=== PATIENT | female | born 1945 | race Caucasian/White ===

== ENCOUNTER 2017-02-09 13:41 | Inpatient (IN) ==
[2017-02-09] MEDS ORDERED: ASPIRIN 325 MG TABLET PO STA (14:03)
--- NOTE | 2017-02-09 14:31 | XRay Report ---
XR chest 1V portable Indication: Chest pain. Chest one view: Comparison 06/11/2008. Borderline to mild cardiomegaly, calcified atheromatous disease the aorta and normal mediastinal contour stable. No new infiltrates are shown with continued interstitial prominence of both lungs diffusely. Impression: Nonspecific interstitial prominence of the lungs diffusely, possibly airways disease or mild fluid overload. Borderline cardiomegaly. PROCEDURE INTERPRETED AT [facility] DEPARTMENT OF RADIOLOGY Final Report Signed by: Shin Mckoy M.D.
[2017-02-09 14:38] LABS: Basophils % 0.5 % (0.0-0.8); Eosinophils # 0.2 10*3/uL (0.0-0.87); Eosinophils % 1.8 % (0.00-10.9); Hematocrit 35.8 VOL% (35.7-47.0); Hemoglobin 10.8 GM/DL (12.0-16.0); Immature Granulocytes % 0.4 %; Immature Granulocytes Absolute 0.03 #; Lymphocytes # 1.3 10*3/uL (1.4-4.0); Lymphocytes % 15.5 % (21.3-54.2); Mean Corpuscular HGB Conc 30.2 GM/DL (32-36); Mean Corpuscular Hemoglobin 26 PG (27-34); Mean Corpuscular Volume 86.7 FL (87-102); Mean Platelet Volume 9.4 FL (9.6-12.0); Monocytes # 0.7 10*3/uL (0.11-0.8); Monocytes % 8.2 % (1.7-12.7); Neutrophils % 73.6 % (38.7-73.9); Platelet Count 269 T/CUMM (130-400); Red Blood Count 4.13 MC/CUMM (3.8-5.5); Red Cell Distribution Width 16.7 % (9.3-17.3); White Blood Count 8.2 T/CUMM (4-12)
[2017-02-09 14:53] LABS: D-Dimer 0.6 MG/L FEU; PT Patient Result 10.4 SECS; Partial Thromboplastin Time 27.1 SECS (0-40)
[2017-02-09] MEDS ORDERED: NITROGLYCERIN SL 0.4 MG TABLET SL PRN (15:03)
[2017-02-09] MEDS ORDERED: NITROGLYCERIN 2% OINT 1 INCH/GM PACK TOP STA (15:03)
[2017-02-09] MEDS ORDERED: ONDANSETRON 4 MG/2 ML VIAL IV STA (15:04)
[2017-02-09] MEDS ORDERED: MORPHINE 2 MG/1 ML SYRINGE IV STA (15:04)
[2017-02-09 15:16] LABS: Alanine Aminotransferase 20 U/L (13-56); Albumin 3.8 G/DL (3.4-5.0); Alkaline Phosphatase 86 U/L (45-117); Aspartate Amino Transferase 16 U/L (0-37); Bilirubin,Total < 0.39 MG/DL (0.2-1.0); Blood Urea Nitrogen 56 MG/DL (7-18); Calcium 8.9 MG/DL (8.5-10.1); Glucose 169 MG/DL (74-106); Magnesium 2.4 MG/DL (1.8-2.4); Osmolality,Calculated 294.7 MOS/KG (273-304); Sodium 138 MMOL/L (136-145); Total Protein 7.7 G/DL (6.4-8.3)
[2017-02-09 15:24] LABS: Potassium 6.9 MMOL/L (3.5-5.1)
[2017-02-09] MEDS ORDERED: SODIUM BICARBONATE 50 MEQ/50 ML VIAL IV STA (15:25)
[2017-02-09] MEDS ORDERED: INSULIN REGULAR 100 UNIT/ML IV STA (15:25)
[2017-02-09] MEDS ORDERED: DEXTROSE 50% 25 GM/50 ML VIAL IV STA (15:25)
[2017-02-09] MEDS ORDERED: ONDANSETRON 4 MG/2 ML VIAL ONE (15:33)
[2017-02-09] MEDS ORDERED: NITROGLYCERIN 2% OINT 1 INCH/GM PACK TOP ONE (15:33)
--- NOTE | 2017-02-09 15:33 | Emergency Department Note ---
Lester Penn Emily, am scribing for, and in the presence of, Weston Zarate MD 15:16. Tessa Penn James D, MD, personally performed the services described in this documentation, ascribed by Belgica Batista in my presence, and it is both accurate and complete 533 . Arrival - Arrival Chief Complaint: Chest Pain Stated Complaint: blood sugar high,legs/ankles swollen/SOB ED Nursing Triage Note: pt was at work today and starte having sudden onset tightness in center of chest with blurry vision. reports is sob. diaphoresis with episode. Mode of Arrival: Wheelchair Limitations: No Limitations Source: Patient, Family Time Seen by Provider: 02/09/17 14:57 - History of Present Illness HPI Narrative: Pt is a 71 y/o female who came to ED with c/o chest pain with SOB that suddenly started this afternoon while at work. Pt reports experiencing with pain double/ blurry vision, nausea, and diaphoresis. Pt states she has had mild chest pain, in waves, for about 2 weeks she ignored, but had pain with exertions, swelling in lower extremities that have become painful and nausea. Pt denies smoking. FMHx of younger brothers with MIs recently, and mother with heart issues. PMHx of HTN, DM. Onset (ago): hour(s) Consistency: intermittent, now resolved Severity: mild, moderate Severity scale (1-10): 4 Quality: aching (pressing) Allergies/Adverse Reactions: Allergies Allergy/AdvReac Type Severity Reaction Status Date / Time No Known Allergies Allergy Unverified 02/09/17 14:05 Home Medications: Home Medications Medication Instructions Recorded Confirmed Type Amitriptyline [Elavil] 100 mg PO BEDTIME 02/09/17 02/09/17 History Aspirin EC Tab 325 mg PO DAILY 02/09/17 02/09/17 History Carvedilol [Coreg] 25 mg PO BID 02/09/17 02/09/17 History Lisinopril/Hydrochlorothiazide 1 each PO DAILY 02/09/17 02/09/17 History [Lisinopril-Hctz 20-25 mg Tab] Metformin HCl 1,000 mg PO BID 02/09/17 02/09/17 History Pravastatin [Pravachol] 40 mg PO BEDTIME 02/09/17 02/09/17 History Spironolactone [Aldactone] 25 mg PO DAILY 02/09/17 02/09/17 History amLODIPine [Norvasc] 10 mg PO DAILY 02/09/17 02/09/17 History glipiZIDE [Glipizide Xl] 10 mg PO BID 02/09/17 02/09/17 History traMADol TAB [Ultram] 50 mg PO BID PRN 02/09/17 02/09/17 History Review of System - Review of System 12 point system: reviewed and no additional remarkable complaints except as stated - Review of System Constitutional: Present: diaphoresis (with pain). Absent: fever Respiratory: Present: respiratory distress (SOB; now resolved) Cardiovascular: Present: chest pain, edema (lower extremities), other (pain with exertion) Gastrointestinal: Present: nausea. Absent: abdominal pain, vomiting Musculoskeletal: Absent: arm pain, neck pain Skin: Absent: rash Neurological: Absent: headache Medical,Surgical,& Family Hx - Medical History Cardio: History of: Hypertension Endocrine: History of: Diabetes Mellitus (NIDDM), Dyslipidemia - Family History Family History: Reports;: Family Heart Disease (mother and younger brother with recent MIs) - Social History Smoking Status: Never smoker Marital Status: Single Functional capacity: independent ambulation Exam Vital Signs: Vital Signs Temperature 98.1 F 02/09/17 14:00 Pulse Rate 79 02/09/17 14:00 Respiratory Rate 22 02/09/17 14:00 Blood Pressure 128/69 02/09/17 14:00 O2 Sat by Pulse Oximetry 99 02/09/17 14:00 GENERAL: This is a well-nourished well-developed white female in no apparent distress. VITAL SIGNS: Reviewed HEENT: Head is atraumatic and normocephalic. Pupils are equal round react to light. Extraocular movements are intact. Oropharynx is benign with moist mucous membranes. NECK: Neck is soft and supple without tenderness. There are no masses. There is no lymphadenopathy. LUNGS: Lungs are clear to auscultation. Chest rises symmetrically. There is no chest wall tenderness. CV: Heart is regular rate and rhythm without murmurs rubs or gallops. ABDOMEN: Abdomen is soft, nontender to palpation. There are no abdominal abnormal masses palpated. There is no organomegaly. Bowel sounds are present and active. SKIN: Skin is warm and dry. No rash. EXTREMITIES: Patient has full range of motion without tenderness. There is 1+ pedal edema. NEUROLOGIC: Awake alert and oriented 4. Cranial nerves II through XII are grossly intact. Motor is 5 over 5 in all extremities bilaterally. Course Course Narrative: Patient was given D50, insulin, and bicarb for treatment of her hyperkalemia. - Consultations Consultation #1: Discussed with hospitalist. Patient will be admitted to their service. Time: 15:33 Results - Labs CBC & BMP: 02/09/17 14:18 02/09/17 14:18 Lab Results: I have reviewed the patients labs Labs: Laboratory Tests 02/09/17 14:18 Sodium 138 Potassium 6.9 H* Chloride 115 H Carbon Dioxide 15 L BUN 56 H Creatinine 2.40 H BUN/Creatinine Ratio 23.00 H Glucose 169 H Globulin 3.9 H Albumin/Globulin Ratio 0.9 L Lipase 814.0 H Laboratory Tests 02/09/17 14:18 B-Natriuretic Peptide 28 - EKG EKG results: interpreted by ERMD - Impressions EKG: Normal sinus rhythm with a rate of 76, nonspecific ST-T wave changes, normal axis. - Diagnostic Findings Procedure: Chest x-ray: image reviewed by me (Mild cardiomegaly, no pleural effusions, no infiltrates.) Critical Care Time Critical Care Time: No Disposition Clinical Impression: Chest pain, Acute renal failure, Hyperkalemia, Essential hypertension, Diabetes mellitus Case discussed with: patient, patient's family Disposition: Still a Patient Condition: Stable Time of Disposition: 16:04
[2017-02-09] MEDS ORDERED: ASPIRIN 325 MG TABLET ONE (15:34)
[2017-02-09] MEDS ORDERED: MORPHINE 2 MG/1 ML SYRINGE ONE (15:34)
[2017-02-09] MEDS ORDERED: INSULIN REGULAR 100 UNIT/ML ONE (15:35)
[2017-02-09] MEDS ORDERED: SODIUM BICARBONATE 50 MEQ/50 ML SYRINGE IV ONE (15:36)
[2017-02-09] MEDS ORDERED: SODIUM POLYSTYRENE SULFATE 15 GM/60 ML BOTTLE PO STA (16:11)
[2017-02-09] MEDS ORDERED: SODIUM POLYSTYRENE SULFATE 15 GM/60 ML BOTTLE ONE (16:26)
[2017-02-09] MEDS ORDERED: GLUCAGON 1 MG VIAL IM PRN (16:34)
--- NOTE | 2017-02-09 16:49 | Hospitalist History & Physical ---
<Norman Brown - Last Filed: 02/09/17 16:35> Assessment and Plan - Time spent with patient Time spent with patient: Greater than 30 minutes (1) Chest pain Status: Acute Assessment and plan: Admit for observation and further evaluation. Serial EKGs and troponins. Lipid panel in a.m. Aspirin tablet. Consult cardiology for assistance. Current Visit: Yes (2) Hyperkalemia Status: Acute Assessment and plan: Patient potassium is elevated at 6.9. She has been admitted to the ICU for close observation and treatment with Kayexalate. Current Visit: Yes (3) Pancreatitis Status: Acute Assessment and plan: Lipase elevated at 814. Continue IV fluids and pain management. Clear liquid diet. Current Visit: Yes (4) Acute renal failure Status: Acute Assessment and plan: Gentle IV hydration. Recheck BMP in a.m. Current Visit: Yes (5) Essential hypertension Status: Acute Assessment and plan: Continue home medications. Current Visit: Yes (6) Diabetes mellitus Status: Acute Assessment and plan: Accu-Cheks before meals at bedtime. Sliding scale as appropriate. Current Visit: Yes History of Present Illness Chief complaint: chest pain History of present illness: Ms. Leblanc is a 71 year old white female with risk factors significant for: hypertension, obesity, diabetes mellitus, age second-hand tobaccoism and family history presents to the ED today with complaints of unrelenting chest pain having onset at 1000 this morning. The patient reports that she has been experiencing mild chest pain on and off for the past 2 weeks but ignored it. Her daughter, who is at bedside, convinced the patient to come to the ER today after she missed her cardiology appointment 2 weeks ago. Patient describes a nonradiating substernal chest "pressure" that was unrelenting for hours with associated SOB. She confirms that the pain has eased with NTG paste and ASA. She confirms nausea, diaphoresis, heat/cold intolerance but denies vomiting, history of smoking, CVA, seizures, BRBPR. She also notes that she often wakes up feeling tired and sometimes becomes apneic with lower extremity edema. Patient is exquisitely tender to palpation of her lower extremities bilaterally. Lab work reveals: WBC 8.2, hemoglobin 10.8, hematocrit 35.8, potassium 6.9, BUN 56, creatinine 2.40, serum glucose 169, lipase 814. Case has been discussed with Dr. Zarate as well as Dr. Apodaca, and the patient will be admitted to the ICU with cardiology consultation. Patient is a full code. Home medications have been reviewed and reconciled. Home Medications Medication Instructions Recorded Confirmed Type Amitriptyline [Elavil] 100 mg PO BEDTIME 02/09/17 02/09/17 History Aspirin EC Tab 325 mg PO DAILY 02/09/17 02/09/17 History Carvedilol [Coreg] 25 mg PO BID 02/09/17 02/09/17 History Lisinopril/Hydrochlorothiazide 1 each PO DAILY 02/09/17 02/09/17 History [Lisinopril-Hctz 20-25 mg Tab] Metformin HCl 1,000 mg PO BID 02/09/17 02/09/17 History Pravastatin [Pravachol] 40 mg PO BEDTIME 02/09/17 02/09/17 History Spironolactone [Aldactone] 25 mg PO DAILY 02/09/17 02/09/17 History amLODIPine [Norvasc] 10 mg PO DAILY 02/09/17 02/09/17 History glipiZIDE [Glipizide Xl] 10 mg PO BID 02/09/17 02/09/17 History traMADol TAB [Ultram] 50 mg PO BID PRN 02/09/17 02/09/17 History Allergies Allergy/AdvReac Type Severity Reaction Status Date / Time No Known Allergies Allergy Unverified 02/09/17 14:05 Medical,Surgical,& Family Hx - Medical History Cardio: History of: Hypertension Endocrine: History of: Diabetes Mellitus (NIDDM), Dyslipidemia - Surgical History Abdominal Surgeries: Surgical HX of: Appendectomy Reproductive Surgeries: Surgical HX of;: Section Orthopedic Surgeries: Surgical HX of;: Orthopedic Surgery (metal plate in right leg) - Family History Family History: Reports;: Family Heart Disease (mother and younger brother with recent MIs) - Social History Smoking Status: Never smoker Frequency of Alcohol Use: None Type of Drug Use: None Marital Status: Lives With:: Spouse Functional capacity: independent ambulation - Constitutional Constitutional: Present: chills, weakness - EENT Eyes: Present: blurry vision, diplopia. Absent: loss of vision - Cardiovascular Cardiovascular: Present: chest pain at rest, chest pain with activity, diaphoresis, dyspnea, edema. Absent: radiating jaw, neck or arm pain, lightheadedness, palpitations - Respiratory Respiratory: Present: dyspnea, snoring. Absent: cough, wheezing, pain on inspiration - Gastrointestinal Gastrointestinal: Present: nausea. Absent: abdominal pain, change in bowel habits, diarrhea, vomiting - Genitourinary Genitourinary: Absent: dysuria - Musculoskeletal Musculoskeletal: Present: arthralgias - Neurological Neurological: Absent: syncope - Endocrine Endocrine: Present: cold intolerance, fatigue, heat intolerance - Hematologic/Lymphatic Hematologic/Lymphatic: Present: easy bleeding, easy bruising Exam - Constitutional Vitals: Period Temp Pulse Resp BP Sys/Becker Pulse Ox Last 24 Hr 98.1 F-98.1 F 79-79 22-22 128-128/69-69 99 General appearance: no acute distress, over weight - Head Head exam: Present: normal inspection, normocephalic, atraumatic - Eye Eye exam: Present: EOMI Pupils: Present: CAITLIN - Neck Neck exam: Present: normal inspection. Absent: lymphadenopathy, tenderness, thyromegaly - Respiratory Respiratory exam: Present: decreased breath sounds. Absent: rhonchi, wheezes - Cardiovascular Cardiovascular exam: Present: regular rate and rhythm - GI/Abdominal GI/Abdominal exam: Present: normal bowel sounds, soft. Absent: ascites, mass, tenderness - Extremities Exam Extremities exam: Present: calf tenderness, edema - Neurological Exam Neurological exam: Present: alert, oriented X3, reflexes normal - Psychiatric Psychiatric exam: Present: normal affect, normal mood - Skin Skin exam: Present: warm, dry, mottled Results - Labs CBC & BMP: 02/09/17 14:18 02/09/17 14:18 Lab Results: I have reviewed the past 24 hour labs - EKG EKG results: interpreted by BRISSA, sinus rhythm <Henny Apodaca - Last Filed: 02/09/17 19:29> Assessment and Plan (1) Hyperkalemia Status: Acute Assessment and plan: IV insulin, calcium gluconate, kayexalate and IV insulin repeat at 1999 Current Visit: Yes (2) Acute renal failure Status: Acute Current Visit: Yes (3) Chest pain Status: Acute Current Visit: Yes (4) Pancreatitis Status: Acute Current Visit: Yes (5) Diabetes mellitus Status: Chronic Current Visit: Yes (6) Essential hypertension Status: Chronic Current Visit: Yes History of Present Illness History of present illness: Ms. Leblanc is a 71 year old female seen and examined. History and physical reviewed and edited. Exam - Constitutional Vitals: Period Temp Pulse Resp BP Sys/Becker Pulse Ox Last 24 Hr 97.3 F-98.1 F 75-93 15-24 101-156/52-115 99-100 - Eye Eye exam: Absent: scleral icterus Pupils: Present: normal accommodation - Cardiovascular Cardiovascular exam: Present: bradycardia, regular rate and rhythm - Neurological Exam Neurological exam: Present: CN II-XII intact. Absent: motor sensory deficit Results - Labs CBC & BMP: 02/09/17 14:18 02/09/17 14:18 - EKG EKG shows: bradycardia - Diagnostic Findings Procedure: Chest x-ray: report reviewed by me (LLL atelectasis ), KUB x-ray: report reviewed by me (stool )
[2017-02-09] MEDS ORDERED: PANTOPRAZOLE 40 MG TABLET PO SCH (17:00)
[2017-02-09] MEDS: SODIUM CHLORIDE 0.45% 1,000 ML IV SCH (17:44)
--- NOTE | 2017-02-09 18:00 | Cardiology Consult Note ---
Assessment and Plan (1) Chest pain Status: Acute Current Visit: Yes (2) Acute renal failure Status: Acute Current Visit: Yes (3) Diabetes mellitus Status: Chronic Current Visit: Yes (4) Essential hypertension Status: Chronic Current Visit: Yes (5) Hyperkalemia Status: Acute Current Visit: Yes (6) Pancreatitis Status: Acute Current Visit: Yes History of Present Illness - Data of Consult Patient: new to practice Consult date: 02/09/17 Requesting Physician: Henny Apodaca - Consult Narrative Reason for consult: CP History of present illness: Medical Malpractice Paralegal: None currently. Daughter Rachel Long works at [employer]. Siblings see Dr. Peck. Patient is a 71-year-old white female without a prior cardiac history, with risk factors that include hypertension, diabetes mellitus, and a family history of coronary artery disease. Apparently she has had a subacute decline with dyspnea on exertion, exertional chest discomfort described as a squeezing in her chest associated with shortness of breath, and bilateral lower extremity edema for approximately 2 months. She was recently started on Aldactone for the swelling, and has been on lisinopril long-term. Her chest discomfort is triggered with exertion, relieved by rest and does not have any other triggers. It is not related to eating or position. It does not radiate. She does not have orthopnea. There has been a steady decline in her exercise tolerance. She had a cardiology appointment but canceled it due to work conflicts. Today at work, her boss felt that she looked unwell, reported that she had been dizzy with some alteration in her vision, and some shortness of breath with diaphoresis. Her blood sugars were elevated in the 300s. Her daughter was contacted to crab picker and brought her to the emergency room. She is currently chest pain-free at rest. She has had bilateral lower extremity edema for 2 months. She has been found to have an elevated lipase, but denies any abdominal tenderness or postprandial chest discomfort. She has experienced some nausea without vomiting. She has not had diarrhea. She is hyperkalemic, and has not had this before. The Aldactone is relatively new. She has been on lisinopril for a number of years. She has renal insufficiency of unknown duration, no prior renal dysfunction although there is a very strong family history of renal dysfunction that apparently is related to reflux. She has had some symptoms of feeling hot and cold at the same time. The remainder of her 12 point review of systems is otherwise negative in detail. Assessment and plan: 1. Chest discomfort: She has symptoms that can be typical of anginal symptoms and at some point we will need to get further cardiac workup. We will begin with an echocardiogram. Invasive workup will be deferred until her renal status is optimized. 2. pancreatitis-curiously she has very few symptoms despite this elevated lipase. This is being treated by the hospitalist service. We will check a lipid profile to evaluate the triglycerides also. 3. Hyperkalemia-this is related probably to her Aldactone, lisinopril and renal insufficiency. Her contributing medications are being held. 4. Acute renal insufficiency-OVIDIO inhibitor is being held. There is associated hyperkalemia. Urinalysis will be checked and possibly renal ultrasound. 5. Bilateral lower extremity edema- Certainly her renal insufficiency could be contributing. We will check an echo, bilateral lower extremity venous Dopplers. 6. Hypertension-chronic. Antihypertensive regimen will be adjusted given her current condition. 7. Diabetes mellitus- Chronic CC: Henny Apodaca MD - Home Medications and Allergies Home Medications: Home Medications Medication Instructions Recorded Confirmed Type Amitriptyline [Elavil] 100 mg PO BEDTIME 02/09/17 02/09/17 History Aspirin EC Tab 325 mg PO DAILY 02/09/17 02/09/17 History Carvedilol [Coreg] 25 mg PO BID 02/09/17 02/09/17 History Lisinopril/Hydrochlorothiazide 1 each PO DAILY 02/09/17 02/09/17 History [Lisinopril-Hctz 20-25 mg Tab] Metformin HCl 1,000 mg PO BID 02/09/17 02/09/17 History Pravastatin [Pravachol] 40 mg PO BEDTIME 02/09/17 02/09/17 History Spironolactone [Aldactone] 25 mg PO DAILY 02/09/17 02/09/17 History amLODIPine [Norvasc] 10 mg PO DAILY 02/09/17 02/09/17 History glipiZIDE [Glipizide Xl] 10 mg PO BID 02/09/17 02/09/17 History traMADol TAB [Ultram] 50 mg PO BID PRN 02/09/17 02/09/17 History Allergies/Adverse Reactions: Allergies Allergy/AdvReac Type Severity Reaction Status Date / Time No Known Allergies Allergy Unverified 02/09/17 14:05 12 point system: reviewed and no additional remarkable complaints except as stated Medical,Surgical,& Family Hx - Medical History Cardio: History of: Hypertension Endocrine: History of: Diabetes Mellitus (NIDDM), Dyslipidemia - Surgical History Abdominal Surgeries: Surgical HX of: Appendectomy Reproductive Surgeries: Surgical HX of;: Section Orthopedic Surgeries: Surgical HX of;: Orthopedic Surgery (metal plate in right leg) - Family History Family History: Reports;: Family Heart Disease (mother and younger brother with recent MIs) - Social History Smoking Status: Never smoker Frequency of Alcohol Use: None Type of Drug Use: None Physical Examination Vital Signs Temp Pulse Resp BP Pulse Ox 98.1 F 79 22 128/69 99 02/09/17 14:00 02/09/17 14:00 02/09/17 14:00 02/09/17 14:00 02/09/17 14:00 Exam: General appearance: normal weight, no acute distress - Head Head exam: Present: normal inspection, normocephalic, atraumatic. Absent: hematoma, laceration - Eye Eye exam: Present: EOMI. Absent: conjunctival injection, nystagmus, periorbital swelling, scleral icterus, laceration to eyelids Pupils: Present: PERRL. Absent: constricted, dilated, fixed, irregular, unequal - ENT ENT exam: Present: normal exam, normal external ear exam - Neck Neck exam: Present: normal inspection. Absent: lymphadenopathy, meningismus, tenderness, thyromegaly - Respiratory Respiratory exam: Present: clear to auscultation bilaterally. Absent: accessory muscle use, chest wall tenderness - Cardiovascular Cardiovascular exam: Present: regular rate and rhythm with 2/6 systolic murmur. Absent: carotid bruit, gallop, JVD, rubs - GI/Abdominal GI/Abdominal exam: Present: normal bowel sounds, soft. Absent: distended, firm , guarding, hernia, mass, tenderness, rebound. - Extremities Exam Extremities exam: Present: 1+ bilateral lower extremity edema. Absent: calf tenderness - Back Exam Back exam: Present: normal inspection. Absent: muscle spasm, vertebral tenderness - Neurological Exam Neurological exam: Present: alert, oriented X3, grossly intact without resting or intention tremor - Psychiatric Psychiatric exam: Present: normal affect, normal mood - Skin Skin exam: Present: normal color, warm, dry, intact. Absent: cyanosis, diaphoretic, rash, urticaria Result/EKG - Labs CBC & BMP: 02/09/17 14:18 02/09/17 14:18 Lab Results: I have reviewed the past 24 hour labs Labs: Laboratory Results - last 24 hr 02/09/17 02/09/17 02/09/17 14:18 14:18 14:18 WBC RBC Hgb Hct MCV MCH MCHC RDW Plt Count MPV Neut % (Auto) Lymph % (Auto) Greer % (Auto) Eos % (Auto) Baso % (Auto) Neut # (Auto) Lymph # (Auto) Greer # (Auto) Eos # (Auto) Baso # (Auto) Immature Gran % Nucleated RBC % Immature Gran # Nucleated RBCs # Immature Plt Fraction INR 1.0 PT Patient/Control Mix 10.4 D-Dimer, Quantitative 0.6 Circ Anticoag PTT 27.1 Sodium 138 Potassium 6.9 H* Chloride 115 H Carbon Dioxide 15 L Anion Gap 14.9 BUN 56 H Creatinine 2.40 H GFR Calculation 22 BUN/Creatinine Ratio 23.00 H Glucose 169 H POC Glucose Calculated Osmolality 294.7 Calcium 8.9 Magnesium 2.4 Total Bilirubin < 0.39 AST 16 ALT 20 Alkaline Phosphatase 86 Troponin I < 0.015 B-Natriuretic Peptide Total Protein 7.7 Albumin 3.8 Globulin 3.9 H Albumin/Globulin Ratio 0.9 L Lipase 814.0 H Free T4 TSH 3rd Generation 02/09/17 02/09/17 02/09/17 14:18 14:18 14:30 WBC 8.2 RBC 4.13 Hgb 10.8 L Hct 35.8 MCV 86.7 L MCH 26 L MCHC 30.2 L RDW 16.7 Plt Count 269 MPV 9.4 L Neut % (Auto) 73.6 Lymph % (Auto) 15.5 L Greer % (Auto) 8.2 Eos % (Auto) 1.8 Baso % (Auto) 0.5 Neut # (Auto) 6.0 Lymph # (Auto) 1.3 L Greer # (Auto) 0.7 Eos # (Auto) 0.2 Baso # (Auto) 0.0 Immature Gran % 0.4 Nucleated RBC % 0.0 Immature Gran # 0.03 Nucleated RBCs # 0.00 Immature Plt Fraction 0.0 INR PT Patient/Control Mix D-Dimer, Quantitative Circ Anticoag PTT Sodium Potassium Chloride Carbon Dioxide Anion Gap BUN Creatinine GFR Calculation BUN/Creatinine Ratio Glucose POC Glucose Calculated Osmolality Calcium Magnesium Total Bilirubin AST ALT Alkaline Phosphatase Troponin I B-Natriuretic Peptide 28 Total Protein Albumin Globulin Albumin/Globulin Ratio Lipase Free T4 0.93 TSH 3rd Generation 02/09/17 02/09/17 14:30 17:33 WBC RBC Hgb Hct MCV MCH MCHC RDW Plt Count MPV Neut % (Auto) Lymph % (Auto) Greer % (Auto) Eos % (Auto) Baso % (Auto) Neut # (Auto) Lymph # (Auto) Greer # (Auto) Eos # (Auto) Baso # (Auto) Immature Gran % Nucleated RBC % Immature Gran # Nucleated RBCs # Immature Plt Fraction INR PT Patient/Control Mix D-Dimer, Quantitative Circ Anticoag PTT Sodium Potassium Chloride Carbon Dioxide Anion Gap BUN Creatinine GFR Calculation BUN/Creatinine Ratio Glucose POC Glucose 90 Calculated Osmolality Calcium Magnesium Total Bilirubin AST ALT Alkaline Phosphatase Troponin I B-Natriuretic Peptide Total Protein Albumin Globulin Albumin/Globulin Ratio Lipase Free T4 TSH 3rd Generation 0.991 - Diagnostic Findings Procedure: Chest x-ray: report reviewed by me - EKG EKG results: interpreted by me, sinus rhythm, no acute changes
[2017-02-09 18:20] LABS: Apearance,Urine CLEAR (Clear); Bilirubin,Urine Negative (Negative); Blood, Urine Negative (Negative); Glucose,Urine (UA) 50 mg/dL (Negative); Hyaline Casts,Urine 6 /LPF (0-3); Ketones,Urine Negative (Negative); Mucus,Urine Occasional /LPF (Occasional); Nitrite,Urine Negative (Negative); Protein,Urine Negative; Squamous Epithelial Cell,Urine Occasional /HPF (0-10); Urine Color Yellow (Yellow); Urine Specific Gravity 1.013 (1.001-1.035); Urine Urobilinogen < 2.0 EU/DL (0.2-1.0); WBC,Urine 1 /HPF (0-6)
[2017-02-09 18:33] LABS: Barbiturates Screen,Urine Negative (Negative); Benzodiazepines Screen,Urine Negative (Negative); Cannabinoid Screen,Urine Negative (Negative); Opiate Screen,Urine Positive (Negative); Phencyclidine Screen,Urine Negative (Negative)
[2017-02-09 19:25] LABS: Troponin I Only < 0.015 NG/ML (0.00-0.045)
[2017-02-09] MEDS ORDERED: CALCIUM GLUCONATE 2,000 MG in SODIUM CHLORIDE 0.9% 100 ML IV ONE (20:00)
[2017-02-09] MEDS: INSULIN REGULAR 100 UNIT/ML SUBCUT SCH (20:05)
[2017-02-09] MEDS: ENOXAPARIN 30 MG/0.3 ML SYRINGE SUBCUT SCH (20:38)
[2017-02-09] MEDS: PRAVASTATIN 40 MG TABLET PO SCH (20:38)
[2017-02-09] MEDS: CARVEDILOL 3.125 MG TABLET PO SCH (20:56)
[2017-02-09] MEDS: AMITRIPTYLINE 25 MG TABLET PO SCH (20:56)
[2017-02-09] MEDS ORDERED: AMITRIPTYLINE 100 MG TABLET PO SCH (21:00)
[2017-02-09] MEDS ORDERED: CARVEDILOL 25 MG TABLET PO SCH (21:00)
[2017-02-09 21:58] LABS: Calcium 9.4 MG/DL (8.5-10.1); Osmolality,Calculated 295.1 MOS/KG (273-304); Potassium 5.5 MMOL/L (3.5-5.1)
[2017-02-10 01:02] LABS: Basophils % 0.6 % (0.0-0.8); Eosinophils # 0.2 10*3/uL (0.0-0.87); Eosinophils % 2.9 % (0.00-10.9); Hematocrit 30.3 VOL% (35.7-47.0); Hemoglobin 9.9 GM/DL (12.0-16.0); Immature Granulocytes % 0.3 %; Immature Granulocytes Absolute 0.02 #; Lymphocytes # 1.6 10*3/uL (1.4-4.0); Lymphocytes % 24.3 % (21.3-54.2); Mean Corpuscular HGB Conc 32.7 GM/DL (32-36); Mean Corpuscular Hemoglobin 27 PG (27-34); Mean Corpuscular Volume 81.7 FL (87-102); Mean Platelet Volume 9.4 FL (9.6-12.0); Monocytes # 0.7 10*3/uL (0.11-0.8); Monocytes % 11.2 % (1.7-12.7); Neutrophils % 60.7 % (38.7-73.9); Platelet Count 240 T/CUMM (130-400); Red Blood Count 3.71 MC/CUMM (3.8-5.5); Red Cell Distribution Width 16.8 % (9.3-17.3); White Blood Count 6.6 T/CUMM (4-12)
[2017-02-10] MEDS: SODIUM CHLORIDE 0.45% 1,000 ML IV SCH ×2 (01:02→09:32)
[2017-02-10 01:36] LABS: Alanine Aminotransferase 19 U/L (13-56); Albumin 3.2 G/DL (3.4-5.0); Alkaline Phosphatase 74 U/L (45-117); Aspartate Amino Transferase 14 U/L (0-37); Bilirubin,Total < 0.39 MG/DL (0.2-1.0); Blood Urea Nitrogen 47 MG/DL (7-18); Calcium 8.6 MG/DL (8.5-10.1); Cholesterol 123 MG/DL (50-200); Glucose 55 MG/DL (74-106); HDL Cholesterol 38 MG/DL (40-60); Osmolality,Calculated 292.1 MOS/KG (273-304); Potassium 5.1 MMOL/L (3.5-5.1); Risk Ratio 3.24; Sodium 142 MMOL/L (136-145); Total Protein 6.4 G/DL (6.4-8.3); Triglycerides 188 MG/DL (2-150); VLDL CHOLESTEROL 37.6 MG/DL
[2017-02-10 01:38] LABS: Troponin I Only < 0.015 NG/ML (0.00-0.045)
[2017-02-10] MEDS: ACETAMINOPHEN 325 MG TABLET PO PRN (06:35)
[2017-02-10] MEDS ORDERED: SODIUM POLYSTYRENE SULFATE 15 GM/60 ML BOTTLE PO ONE (08:13)
[2017-02-10] MEDS: PANTOPRAZOLE 40 MG TABLET PO SCH ×2 (08:20→22:18)
[2017-02-10] MEDS: amLODIPine 10 MG TABLET PO SCH (08:20)
[2017-02-10] MEDS: ASPIRIN EC 325 MG TABLET PO SCH (08:21)
[2017-02-10] MEDS: CARVEDILOL 3.125 MG TABLET PO SCH ×2 (08:21→22:22)
[2017-02-10 08:41] LABS: Troponin I Only < 0.015 NG/ML (0.00-0.045)
[2017-02-10] MEDS ORDERED: HYDROmorphone 2 MG/1 ML VIAL IV ONE (09:12)
--- NOTE | 2017-02-10 09:22 | EKG Report ---
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
--- NOTE | 2017-02-10 09:23 | EKG Report ---
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
--- NOTE | 2017-02-10 09:23 | EKG Report ---
Stationary ECG Study [facility] Test Date: 02/09/2017 10:46:31 PM Pat Name: ISMAEL POWERS Department: Room: 123 Gender: F Associate Program Manager: : 1945 Requested by: Henny Friedman Order Number: [id number] Reading MD: PADILLA WALSH Intervals [place] Rate: 81 P: 41 NH: 142 QRS: 32 QRSD: 102 T: 37 QT: 343 QTc: 380 Interpretive Statements SINUS RHYTHM Electronically Signed On 02-12-17 06:27:34 CDT by PADILLA WALSH [email or web address]
[2017-02-10] MEDS: INSULIN REGULAR 100 UNIT/ML SUBCUT SCH ×4 (09:30→21:25)
[2017-02-10] MEDS: SODIUM BICARB INJ 50 MEQ in SODIUM CHLORIDE 0.45% 1,000 ML IV SCH ×2 (09:30→17:22)
--- NOTE | 2017-02-10 09:34 | Cardiology Progress Note ---
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 Daughter Rachel Long works at [employer]. Siblings see Dr. Peck. Summary: Patient is a 71-year-old white female without a prior cardiac history, with risk factors that include hypertension, diabetes mellitus, and a family history of coronary artery disease. She was admitted with a subacute decline in her exercise tolerance, dyspnea on exertion, exertional chest tightness, bilateral lower extremity edema for 2 months. Upon admission she was found to have hyperkalemia (likely related to Aldactone which is recently started), renal insufficiency and possible pancreatitis. February 10, 2017: Clinically, today she is doing well. She does occasionally have some chest tightness, no clear pain. She denies shortness of breath while at rest. She still denies abdominal pain, although reportedly she had some nausea postprandially. Assessment and plan: 1. Chest discomfort: She has symptoms that can be typical of anginal symptoms and at some point we will need to get further cardiac workup. We will begin with an echocardiogram. Invasive workup will be deferred until her renal status is optimized. 2. pancreatitis-curiously she has very few symptoms despite this elevated lipase. This is being treated by the hospitalist service. 3. Hyperkalemia-this is related probably to her Aldactone, lisinopril and renal insufficiency. Her contributing medications are being held. This is resolved today. 4. Acute renal insufficiency-OVIDIO inhibitor is being held. There is associated hyperkalemia. Urinalysis will be checked and possibly renal ultrasound. This is improved today. 5. Bilateral lower extremity edema- Certainly her renal insufficiency could be contributing. We will check an echo, bilateral lower extremity venous Dopplers. 6. Hypertension-chronic. Antihypertensive regimen will be adjusted given her current condition. 7. Diabetes mellitus- Chronic 8. Anemia-we will work this up. Exam (Progress Note) - Constitutional Vitals: Period Temp Pulse Resp BP Sys/Becker Pulse Ox Last 24 Hr 97.3 F-98.3 F 75-93 11-24 101-156/50-115 94-100 Exam: General appearance: normal weight, no acute distress - Head Head exam: Present: normal inspection, normocephalic, atraumatic. Absent: hematoma, laceration - Eye Eye exam: Present: EOMI. Absent: conjunctival injection, nystagmus, periorbital swelling, scleral icterus, laceration to eyelids Pupils: Present: PERRL. Absent: constricted, dilated, fixed, irregular, unequal - ENT ENT exam: Present: normal exam, normal external ear exam - Neck Neck exam: Present: normal inspection. Absent: lymphadenopathy, meningismus, tenderness, thyromegaly - Respiratory Respiratory exam: Present: clear to auscultation bilaterally. Absent: accessory muscle use, chest wall tenderness - Cardiovascular Cardiovascular exam: Present: regular rate and rhythm with 2/6 systolic murmur. Absent: carotid bruit, gallop, JVD, rubs - GI/Abdominal GI/Abdominal exam: Present: normal bowel sounds, soft. Absent: distended, firm , guarding, hernia, mass, tenderness, rebound. - Extremities Exam Extremities exam: Present: 1+ bilateral lower extremity edema. Absent: calf tenderness - Back Exam Back exam: Present: normal inspection. Absent: muscle spasm, vertebral tenderness - Neurological Exam Neurological exam: Present: alert, oriented X3, grossly intact without resting or intention tremor - Psychiatric Psychiatric exam: Present: normal affect, normal mood - Skin Skin exam: Present: normal color, warm, dry, intact. Absent: cyanosis, diaphoretic, rash, urticaria Result/EKG - Labs CBC & BMP: 02/10/17 00:49 02/10/17 00:49 Lab Results: I have reviewed the past 24 hour labs Labs: Laboratory Results - last 24 hr 02/09/17 02/09/17 02/09/17 14:18 14:18 14:18 WBC RBC Hgb Hct MCV MCH MCHC RDW Plt Count MPV Neut % (Auto) Lymph % (Auto) [place] % (Auto) Eos % (Auto) Baso % (Auto) Neut # (Auto) Lymph # (Auto) [place] # (Auto) Eos # (Auto) Baso # (Auto) Immature Gran % Nucleated RBC % Immature Gran # Nucleated RBCs # Immature Plt Fraction INR 1.0 PT Patient/Control Mix 10.4 D-Dimer, Quantitative 0.6 Circ Anticoag PTT 27.1 Sodium 138 Potassium 6.9 H* Chloride 115 H Carbon Dioxide 15 L Anion Gap 14.9 BUN 56 H Creatinine 2.40 H GFR Calculation 22 BUN/Creatinine Ratio 23.00 H Glucose 169 H POC Glucose Hemoglobin A1c Calculated Osmolality 294.7 Calcium 8.9 Magnesium 2.4 Total Bilirubin < 0.39 AST 16 ALT 20 Alkaline Phosphatase 86 Total Creatine Kinase CK-MB (CK-2) Troponin I < 0.015 B-Natriuretic Peptide Total Protein 7.7 Albumin 3.8 Globulin 3.9 H Albumin/Globulin Ratio 0.9 L Triglycerides Cholesterol LDL Cholesterol VLDL Cholesterol HDL Cholesterol Heart Disease Risk Ratio Lipase 814.0 H Free T4 TSH 3rd Generation Urine Color Urine Appearance Urine pH Ur Specific [place] Urine Protein Urine Glucose (UA) Urine Ketones Urine Blood Urine Nitrate Urine Bilirubin Urine Urobilinogen Urine Leukocytes Urine WBC Ur Squamous Epith Cells Hyaline Casts Urine Mucus Ur Culture Indicated? Urine Opiates Screen Ur Barbiturates Screen Ur Phencyclidine Scrn U Amphetamine/Methamph U Benzodiazepines Scrn U Cocaine Metab Screen U Cannabinoids Screen 02/09/17 02/09/17 02/09/17 14:18 14:18 14:30 WBC 8.2 RBC 4.13 Hgb 10.8 L Hct 35.8 MCV 86.7 L MCH 26 L MCHC 30.2 L RDW 16.7 Plt Count 269 MPV 9.4 L Neut % (Auto) 73.6 Lymph % (Auto) 15.5 L [place] % (Auto) 8.2 Eos % (Auto) 1.8 Baso % (Auto) 0.5 Neut # (Auto) 6.0 Lymph # (Auto) 1.3 L [place] # (Auto) 0.7 Eos # (Auto) 0.2 Baso # (Auto) 0.0 Immature Gran % 0.4 Nucleated RBC % 0.0 Immature Gran # 0.03 Nucleated RBCs # 0.00 Immature Plt Fraction 0.0 INR PT Patient/Control Mix D-Dimer, Quantitative Circ Anticoag PTT Sodium Potassium Chloride Carbon Dioxide Anion Gap BUN Creatinine GFR Calculation BUN/Creatinine Ratio Glucose POC Glucose Hemoglobin A1c Calculated Osmolality Calcium Magnesium Total Bilirubin AST ALT Alkaline Phosphatase Total Creatine Kinase CK-MB (CK-2) Troponin I B-Natriuretic Peptide 28 Total Protein Albumin Globulin Albumin/Globulin Ratio Triglycerides Cholesterol LDL Cholesterol VLDL Cholesterol HDL Cholesterol Heart Disease Risk Ratio Lipase Free T4 0.93 TSH 3rd Generation Urine Color Urine Appearance Urine pH Ur Specific [place] Urine Protein Urine Glucose (UA) Urine Ketones Urine Blood Urine Nitrate Urine Bilirubin Urine Urobilinogen Urine Leukocytes Urine WBC Ur Squamous Epith Cells Hyaline Casts Urine Mucus Ur Culture Indicated? Urine Opiates Screen Ur Barbiturates Screen Ur Phencyclidine Scrn U Amphetamine/Methamph U Benzodiazepines Scrn U Cocaine Metab Screen U Cannabinoids Screen 02/09/17 02/09/17 02/09/17 14:30 17:33 18:10 WBC RBC Hgb Hct MCV MCH MCHC RDW Plt Count MPV Neut % (Auto) Lymph % (Auto) [place] % (Auto) Eos % (Auto) Baso % (Auto) Neut # (Auto) Lymph # (Auto) [place] # (Auto) Eos # (Auto) Baso # (Auto) Immature Gran % Nucleated RBC % Immature Gran # Nucleated RBCs # Immature Plt Fraction INR PT Patient/Control Mix D-Dimer, Quantitative Circ Anticoag PTT Sodium Potassium Chloride Carbon Dioxide Anion Gap BUN Creatinine GFR Calculation BUN/Creatinine Ratio Glucose POC Glucose 90 Hemoglobin A1c Calculated Osmolality Calcium Magnesium Total Bilirubin AST ALT Alkaline Phosphatase Total Creatine Kinase CK-MB (CK-2) Troponin I B-Natriuretic Peptide Total Protein Albumin Globulin Albumin/Globulin Ratio Triglycerides Cholesterol LDL Cholesterol VLDL Cholesterol HDL Cholesterol Heart Disease Risk Ratio Lipase Free T4 TSH 3rd Generation 0.991 Urine Color Yellow Urine Appearance Clear Urine pH 5.0 Ur Specific [place] 1.013 Urine Protein Negative Urine Glucose (UA) 50 Urine Ketones Negative Urine Blood Negative Urine Nitrate Negative Urine Bilirubin Negative Urine Urobilinogen < 2.0 H Urine Leukocytes Negative Urine WBC 1 Ur Squamous Epith Cells Occasional Hyaline Casts 6 Urine Mucus Occasional Ur Culture Indicated? Not indicated Urine Opiates Screen Ur Barbiturates Screen Ur Phencyclidine Scrn U Amphetamine/Methamph U Benzodiazepines Scrn U Cocaine Metab Screen U Cannabinoids Screen 02/09/17 02/09/17 02/09/17 18:10 18:33 18:36 WBC RBC Hgb Hct MCV MCH MCHC RDW Plt Count MPV Neut % (Auto) Lymph % (Auto) [place] % (Auto) Eos % (Auto) Baso % (Auto) Neut # (Auto) Lymph # (Auto) [place] # (Auto) Eos # (Auto) Baso # (Auto) Immature Gran % Nucleated RBC % Immature Gran # Nucleated RBCs # Immature Plt Fraction INR PT Patient/Control Mix D-Dimer, Quantitative Circ Anticoag PTT Sodium Potassium Chloride Carbon Dioxide Anion Gap BUN Creatinine GFR Calculation BUN/Creatinine Ratio Glucose POC Glucose Hemoglobin A1c 6.8 H Calculated Osmolality Calcium Magnesium Total Bilirubin AST ALT Alkaline Phosphatase Total Creatine Kinase 240 H CK-MB (CK-2) 1.1 Troponin I < 0.015 B-Natriuretic Peptide Total Protein Albumin Globulin Albumin/Globulin Ratio Triglycerides Cholesterol LDL Cholesterol VLDL Cholesterol HDL Cholesterol Heart Disease Risk Ratio Lipase Free T4 TSH 3rd Generation Urine Color Urine Appearance Urine pH Ur Specific [place] Urine Protein Urine Glucose (UA) Urine Ketones Urine Blood Urine Nitrate Urine Bilirubin Urine Urobilinogen Urine Leukocytes Urine WBC Ur Squamous Epith Cells Hyaline Casts Urine Mucus Ur Culture Indicated? Urine Opiates Screen Positive H Ur Barbiturates Screen Negative Ur Phencyclidine Scrn Negative U Amphetamine/Methamph Negative U Benzodiazepines Scrn Negative U Cocaine Metab Screen Negative U Cannabinoids Screen Negative 02/09/17 02/09/17 02/09/17 18:36 18:36 19:55 WBC RBC Hgb Hct MCV MCH MCHC RDW Plt Count MPV Neut % (Auto) Lymph % (Auto) [place] % (Auto) Eos % (Auto) Baso % (Auto) Neut # (Auto) Lymph # (Auto) [place] # (Auto) Eos # (Auto) Baso # (Auto) Immature Gran % Nucleated RBC % Immature Gran # Nucleated RBCs # Immature Plt Fraction INR PT Patient/Control Mix D-Dimer, Quantitative Circ Anticoag PTT Sodium 142 Potassium 5.5 H Chloride 117 H Carbon Dioxide 16 L Anion Gap 14.5 BUN 51 H Creatinine 2.20 H GFR Calculation 25 BUN/Creatinine Ratio 23.00 H Glucose 87 POC Glucose 81 Hemoglobin A1c Calculated Osmolality 295.1 Calcium 9.4 Magnesium 2.4 Total Bilirubin AST ALT Alkaline Phosphatase Total Creatine Kinase CK-MB (CK-2) Troponin I B-Natriuretic Peptide Total Protein Albumin Globulin Albumin/Globulin Ratio Triglycerides Cholesterol LDL Cholesterol VLDL Cholesterol HDL Cholesterol Heart Disease Risk Ratio Lipase Free T4 TSH 3rd Generation Urine Color Urine Appearance Urine pH Ur Specific [place] Urine Protein Urine Glucose (UA) Urine Ketones Urine Blood Urine Nitrate Urine Bilirubin Urine Urobilinogen Urine Leukocytes Urine WBC Ur Squamous Epith Cells Hyaline Casts Urine Mucus Ur Culture Indicated? Urine Opiates Screen Ur Barbiturates Screen Ur Phencyclidine Scrn U Amphetamine/Methamph U Benzodiazepines Scrn U Cocaine Metab Screen U Cannabinoids Screen 02/10/17 02/10/17 02/10/17 00:49 00:49 00:49 WBC 6.6 RBC 3.71 L Hgb 9.9 L Hct 30.3 L MCV 81.7 L MCH 27 MCHC 32.7 RDW 16.8 Plt Count 240 MPV 9.4 L Neut % (Auto) 60.7 Lymph % (Auto) 24.3 [place] % (Auto) 11.2 Eos % (Auto) 2.9 Baso % (Auto) 0.6 Neut # (Auto) 4.0 Lymph # (Auto) 1.6 [place] # (Auto) 0.7 Eos # (Auto) 0.2 Baso # (Auto) 0.0 Immature Gran % 0.3 Nucleated RBC % 0.0 Immature Gran # 0.02 Nucleated RBCs # 0.00 Immature Plt Fraction 0.0 INR PT Patient/Control Mix D-Dimer, Quantitative Circ Anticoag PTT Sodium 142 Potassium 5.1 Chloride 117 H Carbon Dioxide 17 L Anion Gap 13.1 BUN 47 H Creatinine 1.80 H GFR Calculation 32 BUN/Creatinine Ratio 26.00 H Glucose 55 L POC Glucose Hemoglobin A1c Calculated Osmolality 292.1 Calcium 8.6 Magnesium Total Bilirubin < 0.39 AST 14 ALT 19 Alkaline Phosphatase 74 Total Creatine Kinase 148 D CK-MB (CK-2) 1.3 Troponin I < 0.015 B-Natriuretic Peptide Total Protein 6.4 Albumin 3.2 L Globulin 3.2 Albumin/Globulin Ratio 1.0 L Triglycerides 188 H Cholesterol 123 LDL Cholesterol 56.0 VLDL Cholesterol 37.6 HDL Cholesterol 38 L Heart Disease Risk Ratio 3.24 Lipase Free T4 TSH 3rd Generation Urine Color Urine Appearance Urine pH Ur Specific [place] Urine Protein Urine Glucose (UA) Urine Ketones Urine Blood Urine Nitrate Urine Bilirubin Urine Urobilinogen Urine Leukocytes Urine WBC Ur Squamous Epith Cells Hyaline Casts Urine Mucus Ur Culture Indicated? Urine Opiates Screen Ur Barbiturates Screen Ur Phencyclidine Scrn U Amphetamine/Methamph U Benzodiazepines Scrn U Cocaine Metab Screen U Cannabinoids Screen 02/10/17 02/10/17 07:19 07:19 WBC RBC Hgb Hct MCV MCH MCHC RDW Plt Count MPV Neut % (Auto) Lymph % (Auto) [place] % (Auto) Eos % (Auto) Baso % (Auto) Neut # (Auto) Lymph # (Auto) [place] # (Auto) Eos # (Auto) Baso # (Auto) Immature Gran % Nucleated RBC % Immature Gran # Nucleated RBCs # Immature Plt Fraction INR PT Patient/Control Mix D-Dimer, Quantitative Circ Anticoag PTT Sodium Potassium Chloride Carbon Dioxide Anion Gap BUN Creatinine GFR Calculation BUN/Creatinine Ratio Glucose POC Glucose Hemoglobin A1c Calculated Osmolality Calcium Magnesium Total Bilirubin AST ALT Alkaline Phosphatase Total Creatine Kinase 118 D CK-MB (CK-2) 1.2 Troponin I < 0.015 B-Natriuretic Peptide Total Protein Albumin Globulin Albumin/Globulin Ratio Triglycerides Cholesterol LDL Cholesterol VLDL Cholesterol HDL Cholesterol Heart Disease Risk Ratio Lipase 486.0 H D Free T4 TSH 3rd Generation Urine Color Urine Appearance Urine pH Ur Specific [place] Urine Protein Urine Glucose (UA) Urine Ketones Urine Blood Urine Nitrate Urine Bilirubin Urine Urobilinogen Urine Leukocytes Urine WBC Ur Squamous Epith Cells Hyaline Casts Urine Mucus Ur Culture Indicated? Urine Opiates Screen Ur Barbiturates Screen Ur Phencyclidine Scrn U Amphetamine/Methamph U Benzodiazepines Scrn U Cocaine Metab Screen U Cannabinoids Screen
--- NOTE | 2017-02-10 09:40 | Hospitalist Progress Note ---
Assessment and Plan (1) Hyperkalemia Status: Acute Assessment and plan: better today, will still give kayexalate today Current Visit: Yes (2) Acute renal failure Status: Acute Assessment and plan: better today Current Visit: Yes (3) Chest pain Status: Acute Assessment and plan: serial troponins negative, echo done this morning, discussed with dr. Sharp , will proceed with cardiac workup when kidneys improve. Current Visit: Yes (4) Pancreatitis Status: Acute Assessment and plan: asymptomatic, tried advance diet and then she became very nauseated Current Visit: Yes (5) Diabetes mellitus Status: Chronic Assessment and plan: hold glipizide for now Current Visit: Yes (6) Essential hypertension Status: Chronic Assessment and plan: controlled Current Visit: Yes Hospitalist: Subjective Interval history: Patient complaining of leg pain and chest pain this morning. She is not tender in her epigastric region. She seems to be relatively asymptomatic from the pancreatitis. Will advance her to a soft diet. Patient will be given [place] for pain. She has chronic headaches. We will give her a one-time dose of 0.5 of Dilaudid. Patient has sleep apnea undiagnosed. Caution with pain medicines. She has a lot of miscellaneous complaints. Doing echo now. Exam - Constitutional Vitals: Period Temp Pulse Resp BP Sys/Becker Pulse Ox Last 24 Hr 97.3 F-98.3 F 75-93 11-24 101-156/50-115 94-100 Exam: Heart Rate-[RRR] Lungs-[CTAB] GI-[+bs soft, NT] Ext-[no edema with tender to touch on legs ] Neuro [Motor 5/5], [alert and oriented times 3] psych [anxious mood and affect] General [mild acute distress] Results - Labs CBC & BMP: 02/10/17 00:49 02/10/17 00:49 Lab Results: I have reviewed the past 24 hour labs - Diagnostic Findings Procedure: Ultrasound: report reviewed by me (venous dopplers negative )
[2017-02-10 09:51] LABS: % Iron Saturation 12.1 % (18-50)
--- NOTE | 2017-02-10 10:03 | Ultrasound Report ---
History: Lower extremity edema Date: 02/10/2017 Study: Bilateral lower extremity color-flow venous Doppler study Comparison exam: No previous similar currently available Color Doppler, wave form analysis, and compression analysis of the deep veins of both lower extremities from the common femoral vein level through the popliteal vein level shows that the veins are readily compressible. There is no abnormal intraluminal material to suggest thrombus. Waveform analysis is unremarkable. Ultrasound images were captured and archived Impression: Normal bilateral lower extremity color flow venous Doppler study. No evidence of acute DVT PROCEDURE INTERPRETED AT [facility] DEPARTMENT OF RADIOLOGY Final Report Signed by: Dr. Katelynn Javier
[2017-02-10] MEDS: ONDANSETRON 4 MG/2 ML VIAL IV PRN ×2 (12:58→19:43)
--- NOTE | 2017-02-10 16:31 | ECHO Report ---
Lizbeth Leblanc Exam Date: 02/10/2017 09:41 Referring Physician: Technologist: Norma Vee Age: 71 Ht (in): 65 Wt (lb): 196 Gender: F Exam Location: [facility] Echo Indications: hyperkalemia, pancrealitis, edema, SOB, acute renal failure BP: 110 / 65 HR: 77 Rhythm: Sinus Technical Quality: Fair IMPRESSIONS Normal LV systolic function, ejection fraction 55%. Grade 1/4 diastolic dysfunction (impaired relaxation). Mild concentric left ventricular hypertrophy. Mild left atrial enlargement. Mild right ventricular dilation. Trace mitral and tricuspid regurgitation. Trivial pericardial effusion. MEASUREMENTS (Male / Female) Normal Values 2D ECHO LV Diastolic Diameter PLAX 4.5 cm 4.2 - 5.9 / 3.9 - 5.3 cm LV Systolic Diameter PLAX 3.1 cm LV Fractional Shortening PLAX 30.6 % IVS Diastolic Thickness 1.2 cm 0.6 - 1.0 / 0.6 - 0.9 cm LVPW Diastolic Thickness 1.3 cm 0.6 - 1.0 / 0.6 - 0.9 cm Aortic Root Diameter 2.5 cm LA Systolic Diameter LX 3.5 cm 3.0 - 4.0 / 2.7 - 3.8 cm DOPPLER TR Peak Velocity 261.0 cm/s TR Peak Gradient 27.2 mmHg FINDINGS Left Ventricle Normal left ventricular cavity size. Mild concentric left ventricular hypertrophy with diastolic dysfunction. Left ventricular ejection fraction is estimated at 50-55 %. Right Ventricle Mildly increased right ventricular size. Right Atrium Normal size. Left Atrium Grossly appears to be mildly enlarged. Mitral Valve Mildly thickened mitral valve with trace mitral regurgitation. Aortic Valve The aortic valve is trileaflet and has normal motion. Tricuspid Valve Morphologically normal tricuspid valve. Trace tricuspid valve regurgitation. Pulmonic Valve Morphologically normal pulmonic valve. Pericardium Trivial pericardial effusion. Aorta Normal size aortic root and proximal ascending aorta. Rachel Sharp MD (Electronically Signed) Final Date: 10 February 2017 16:21
[2017-02-10] MEDS: AMITRIPTYLINE 25 MG TABLET PO SCH (22:17)
[2017-02-10] MEDS: PRAVASTATIN 40 MG TABLET PO SCH (22:18)
[2017-02-10] MEDS: ENOXAPARIN 30 MG/0.3 ML SYRINGE SUBCUT SCH (22:18)
[2017-02-11] MEDS: SODIUM BICARB INJ 50 MEQ in SODIUM CHLORIDE 0.45% 1,000 ML IV SCH ×2 (04:40→11:38)
[2017-02-11 05:10] LABS: Bilirubin,Total 0.5 MG/DL (0.2-1.0); Calcium 8.2 MG/DL (8.5-10.1); Osmolality,Calculated 287.8 MOS/KG (273-304); Potassium 4.1 MMOL/L (3.5-5.1); Total Protein 6.1 G/DL (6.4-8.3)
[2017-02-11] MEDS: INSULIN REGULAR 100 UNIT/ML SUBCUT SCH ×4 (08:46→21:23)
[2017-02-11] MEDS: amLODIPine 10 MG TABLET PO SCH (08:48)
[2017-02-11] MEDS: ASPIRIN EC 325 MG TABLET PO SCH (08:48)
[2017-02-11] MEDS: PANTOPRAZOLE 40 MG TABLET PO SCH ×2 (08:49→21:23)
[2017-02-11] MEDS: CARVEDILOL 3.125 MG TABLET PO SCH (08:49)
--- NOTE | 2017-02-11 11:16 | Hospitalist Progress Note ---
Assessment and Plan (1) Hyperkalemia Status: Acute Assessment and plan: Resolved Current Visit: Yes (2) Acute renal failure Status: Acute Assessment and plan: Creatinine down to 1.2 will take bicarb at a fluids. Should be stable for heart cath in morning Current Visit: Yes (3) Chest pain Status: Acute Assessment and plan: serial troponins negative, most likely cath in am Current Visit: Yes (4) Pancreatitis Status: Acute Assessment and plan: lipase improving, wants more food today Current Visit: Yes (5) Diabetes mellitus Status: Chronic Assessment and plan: restart glipizide at 5 mg daily Current Visit: Yes (6) Essential hypertension Status: Chronic Assessment and plan: increase coreg to 6.25 mg po bid Current Visit: Yes (7) Anemia Status: Acute Assessment and plan: Dr. Sharp is concerned about anticoagulation after heart cath. We will have GI see her today. Continue Protonix twice daily. Iron levels are low. Will ask for a ferritin level. Will ask pharmacy to calculate and infuse iron today. Current Visit: Yes Hospitalist: Subjective Interval history: Patient feels great today and her creatinine is down to 1.2. Hopefully heart cath in the morning. We will advance her to a soft diet. We will make her n.p.o. after midnight. Her lipase is coming down. Exam - Constitutional Vitals: Period Temp Pulse Resp BP Sys/Becker Pulse Ox Last 24 Hr 97.1 F-98.2 F 70-84 18-20 123-181/58-83 93-99 Exam: Heart Rate-[RRR] Lungs-[CTAB] GI-[+bs soft, NT] Ext-[no edema Neuro [Motor 5/5], [alert and oriented times 3] psych [normal mood and affect] General [no acute distress] Results - Labs CBC & BMP: 02/10/17 00:49 02/11/17 04:20 Lab Results: I have reviewed the past 24 hour labs - Diagnostic Findings Procedure: Ultrasound: report reviewed by me (Negative for DVT)
[2017-02-11] MEDS ORDERED: CARVEDILOL 3.125 MG TABLET PO SCH (11:30)
[2017-02-11] MEDS: SODIUM CHLORIDE 0.45% 1,000 ML IV SCH (11:55)
[2017-02-11] MEDS: glipiZIDE 5 MG TABLET PO SCH (11:56)
[2017-02-11] MEDS ORDERED: IRON SUCROSE IV ONE (12:30)
[2017-02-11] MEDS ORDERED: SODIUM CHLORIDE 0.9% IV ONE (12:30)
[2017-02-11] MEDS ORDERED: IRON SUCROSE 175 MG in SODIUM CHLORIDE 0.9% 100 ML IV ONE (13:00)
[2017-02-11] MEDS ORDERED: LACTULOSE 20 GM/30 ML UDCUP PO ONE (15:15)
--- NOTE | 2017-02-11 15:25 | Cardiology Progress Note ---
Assessment and Plan (1) Chest pain Status: Acute Current Visit: Yes (2) Acute renal failure Status: Acute Current Visit: Yes (3) Diabetes mellitus Status: Chronic Current Visit: Yes (4) Essential hypertension Status: Chronic Current Visit: Yes (5) Hyperkalemia Status: Acute Current Visit: Yes (6) Pancreatitis Status: Acute Current Visit: Yes (7) Anemia Status: Acute Current Visit: Yes Cardiology - PN: Subj Interval history: Remote Encoding Center Manager: None currently. Daughter Rachel Long works at [employer]. Siblings see Dr. Peck. Summary: Patient is a 71-year-old white female without a prior cardiac history, with risk factors that include hypertension, diabetes mellitus, and a family history of coronary artery disease. She was admitted with a subacute decline in her exercise tolerance, dyspnea on exertion, exertional chest tightness, bilateral lower extremity edema for 2 months. Upon admission she was found to have hyperkalemia (likely related to Aldactone which is recently started), renal insufficiency and possible pancreatitis. February 10, 2017: Clinically, today she is doing well. She does occasionally have some chest tightness, no clear pain. She denies shortness of breath while at rest. She still denies abdominal pain, although reportedly she had some nausea postprandially. February 11, 2017: She continues to do well clinically. She is not having any chest pain or shortness of breath. Edema is improved although she does have some generalized aching in her legs. She is tolerating p.o. Creatinine has normalized, amylase is decreasing. Assessment and plan: 1. Chest discomfort: She has symptoms that can be typical of anginal symptoms and at some point we will need to get further cardiac workup. EF is improved. Given the nature of her symptoms I believe it most prudent to proceed with cardiac catheterization. Today's the first day of normal renal function and we may want to wait a day or 2. Additionally, her lipase is still decreasing, and there have been some instances of post-cath pancreatitis. She is getting her anemia worked up. Hopefully she will be ready for catheterization within the next few days depending on the results of her anemia workup. 2. pancreatitis-curiously she has very few symptoms despite this elevated lipase. This is being treated by the hospitalist service. Overall it is improving 3. Hyperkalemia-this is related probably to her Aldactone, lisinopril and renal insufficiency. Her contributing medications are being held. This is resolved today. 4. Acute renal insufficiency-OVIDIO inhibitor is being held. There is associated hyperkalemia. Creatinine has now normalized. 5. Bilateral lower extremity edema- Certainly her renal insufficiency could be contributing. Dopplers are negative for DVT. She has normal systolic function. I suspect her Norvasc is contributing to this. 6. Hypertension-chronic. Her OVIDIO inhibitor is being held due to her acute renal insufficiency and hyperkalemia. We are going to increase her beta- taylor. Once her blood pressure is controlled, I would favor advancing her beta-taylor and decreasing her calcium channel taylor, and then reevaluating her lower extremity edema. 7. Diabetes mellitus- Chronic 8. Anemia-this is being worked up. We are still awaiting the stool sample. It is iron deficiency. Exam (Progress Note) - Constitutional Vitals: Period Temp Pulse Resp BP Sys/Becker Pulse Ox Last 24 Hr 97.6 F-98.2 F 70-86 18-20 123-181/58-83 93-99 Result/EKG - Labs CBC & BMP: 02/10/17 00:49 02/11/17 04:20 Labs: Laboratory Results - last 24 hr 02/10/17 02/10/17 02/11/17 16:05 21:09 04:18 Sodium Potassium Chloride Carbon Dioxide Anion Gap BUN Creatinine GFR Calculation BUN/Creatinine Ratio Glucose POC Glucose 175 H 112 H Calculated Osmolality Calcium Ferritin 22.2 Total Bilirubin AST ALT Alkaline Phosphatase Total Protein Albumin Globulin Albumin/Globulin Ratio Lipase 02/11/17 02/11/17 02/11/17 04:20 04:20 07:34 Sodium 144 Potassium 4.1 Chloride 111 H Carbon Dioxide 26 Anion Gap 11.1 BUN 18 Creatinine 1.20 H GFR Calculation 52 BUN/Creatinine Ratio 15.00 Glucose 98 POC Glucose 149 H Calculated Osmolality 287.8 Calcium 8.2 L Ferritin Total Bilirubin 0.50 AST 10 ALT 13 Alkaline Phosphatase 72 Total Protein 6.1 L Albumin 3.0 L Globulin 3.1 Albumin/Globulin Ratio 0.9 L Lipase 481.0 H 02/11/17 12:16 Sodium Potassium Chloride Carbon Dioxide Anion Gap BUN Creatinine GFR Calculation BUN/Creatinine Ratio Glucose POC Glucose 210 H Calculated Osmolality Calcium Ferritin Total Bilirubin AST ALT Alkaline Phosphatase Total Protein Albumin Globulin Albumin/Globulin Ratio Lipase
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
[2017-02-11] MEDS: CYANOCOBALAMIN 1000 MCG/1 ML VIAL SUBCUT SCH (17:49)
[2017-02-11] MEDS: AMITRIPTYLINE 25 MG TABLET PO SCH (21:23)
[2017-02-11] MEDS: PRAVASTATIN 40 MG TABLET PO SCH (21:23)
[2017-02-11] MEDS: CARVEDILOL 12.5 MG TABLET PO SCH (21:23)
[2017-02-11] MEDS: ENOXAPARIN 40 MG/0.4 ML SYRINGE SUBCUT SCH (21:24)
[2017-02-12] MEDS: SODIUM CHLORIDE 0.45% 1,000 ML IV SCH ×5 (04:14→23:57)
[2017-02-12 04:59] LABS: Basophils % 0.5 % (0.0-0.8); Eosinophils # 0.2 10*3/uL (0.0-0.87); Eosinophils % 3.2 % (0.00-10.9); Hemoglobin 9.7 GM/DL (12.0-16.0); Immature Granulocytes % 0.5 %; Immature Granulocytes Absolute 0.03 #; Lymphocytes # 1.4 10*3/uL (1.4-4.0); Lymphocytes % 24.5 % (21.3-54.2); Mean Corpuscular HGB Conc 32.3 GM/DL (32-36); Mean Corpuscular Hemoglobin 26 PG (27-34); Mean Corpuscular Volume 80.4 FL (87-102); Mean Platelet Volume 9.3 FL (9.6-12.0); Monocytes # 0.9 10*3/uL (0.11-0.8); Monocytes % 15.3 % (1.7-12.7); Neutrophils # 3.1 10*3/uL (1.4-7.4); Platelet Count 215 T/CUMM (130-400); Red Blood Count 3.73 MC/CUMM (3.8-5.5); Red Cell Distribution Width 15.9 % (9.3-17.3); White Blood Count 5.5 T/CUMM (4-12)
[2017-02-12 05:36] LABS: Albumin 2.9 G/DL (3.4-5.0); Bilirubin,Total 0.6 MG/DL (0.2-1.0); Osmolality,Calculated 287.1 MOS/KG (273-304); Total Protein 6.1 G/DL (6.4-8.3)
[2017-02-12] MEDS: ASPIRIN EC 325 MG TABLET PO SCH (08:58)
[2017-02-12] MEDS: INSULIN REGULAR 100 UNIT/ML SUBCUT SCH ×4 (08:59→22:40)
[2017-02-12] MEDS: CYANOCOBALAMIN 1000 MCG/1 ML VIAL SUBCUT SCH (08:59)
[2017-02-12] MEDS: amLODIPine 10 MG TABLET PO SCH (08:59)
[2017-02-12] MEDS: CARVEDILOL 12.5 MG TABLET PO SCH ×2 (08:59→22:40)
[2017-02-12] MEDS: PANTOPRAZOLE 40 MG TABLET PO SCH ×2 (08:59→22:39)
[2017-02-12] MEDS: glipiZIDE 5 MG TABLET PO SCH (08:59)
--- NOTE | 2017-02-12 11:59 | Cardiology Progress Note ---
<Yuliet Templeton E - Last Filed: 02/12/17 13:49> Assessment and Plan - Time spent with patient Time spent with patient: Greater than 30 minutes (1) Chest pain Status: Acute Assessment and plan: SEE PLAN OF CARE LISTED BELOW Current Visit: Yes (2) Acute renal failure Status: Resolved Assessment and plan: SEE PLAN OF CARE LISTED BELOW Current Visit: Yes (3) Hyperkalemia Status: Resolved Assessment and plan: SEE PLAN OF CARE LISTED BELOW Current Visit: Yes (4) Essential hypertension Status: Chronic Assessment and plan: SEE PLAN OF CARE LISTED BELOW Current Visit: Yes (5) Diabetes mellitus Status: Chronic Assessment and plan: SEE PLAN OF CARE LISTED BELOW Current Visit: Yes (6) Pancreatitis Status: Acute Assessment and plan: SEE PLAN OF CARE LISTED BELOW Current Visit: Yes Qualifiers: Chronicity: acute Acute pancreatitis complication: unspecified (7) Iron deficiency anemia Status: Acute Assessment and plan: SEE PLAN OF CARE LISTED BELOW Current Visit: Yes Cardiology - PN: Subj Interval history: GEODETIC ADVISOR: (NEW) DR. DEWEY Daughter Rachel Long works at [employer]. SUMMARY: 71WF without a prior cardiac history, with risk factors that include hypertension, diabetes mellitus, and a family history of coronary artery disease. She was admitted with a subacute decline in her exercise tolerance, dyspnea on exertion, exertional chest tightness, bilateral lower extremity edema for 2 months. Upon admission she was found to have hyperkalemia (likely related to Aldactone which was recently started), renal insufficiency and possible pancreatitis. She has had some anemia and gastroenterology has been involved February 10, 2017: Clinically, today she is doing well. She does occasionally have some chest tightness, no clear pain. She denies shortness of breath while at rest. She still denies abdominal pain, although reportedly she had some nausea postprandially. February 11, 2017: She continues to do well clinically. She is not having any chest pain or shortness of breath. Edema is improved although she does have some generalized aching in her legs. She is tolerating p.o. Creatinine has normalized, amylase is decreasing. FEBRUARY 12, 2017: Over the weekend, patient has done well. She is in need of cardiac catheterization during this hospital stay but several conditions were being addressed prior to heart cath including renal insufficiency and anemia. Creatinine was 2.2 on arrival and has now improved to 1.4. Hemoglobin and hematocrit have been relatively stable during his hospital stay, initially arriving at 10.8 and 35.8, this morning 9.7 and 30.0. She was unaware she had a history of anemia. Dr. Solis, boomswing operator, saw her over the weekend and reports that she does not need invasive GI workup prior to proceeding with heart catheterization. Stool for occult blood has been ordered however, she received Mag Citrate Sunday (prior to order for stool for occult blood) and she has not been able to produce another bowel movement since that time. She is anxious to undergo heart catheterization soon. Lipase, initially 814, is now 543. I will further discuss with Dr. Dewey and await additional recommendations. ASSESSMENT/PLAN: 1. CHEST PAIN - Concerning for angina. See above. EF is improved. Given the nature of her symptoms, it is felt prudent to proceed with cardiac catheterization soon. Creatinine improved, and her lipase is still decreasing. There have been some instances of post-cath pancreatitis. GI has seen patient and believes she is safe for [facility]. Iron transfusion ordered. Hopefully she will be ready for catheterization tomorrow or within the next few days. 2. PANCREATITIS - curiously she has very few symptoms despite this elevated lipase. This is being treated by the hospitalist service. Overall it is improving 3. HYPERKALEMIA - this is related probably to her Aldactone, Lisinopril and renal insufficiency. Her contributing medications are being held. This has resolved today. 4. ACUTE RENAL INSUFFICIENCY - OVIDIO inhibitor is being held. There was associated hyperkalemia. Creatinine has now normalized. 5. BILATERAL LOWER EXTREMITY EDEMA - Certainly her renal insufficiency could be contributing. Dopplers are negative for DVT. She has normal systolic function. I suspect her Norvasc is contributing to this. 6. HYPERTENSION - Her OVIDIO inhibitor is being held due to her acute renal insufficiency and hyperkalemia. We are going to increase her beta-taylor again today. Eventually, favor advancing decreasing her calcium channel taylor when able, and then reevaluating her lower extremity edema. 7. DIABETES MELLITUS - Chronic, suboptimally controlled 8. ANEMIA - see GI's note. We are still awaiting the stool sample. It is iron deficiency. Exam (Progress Note) - Constitutional Vitals: Period Temp Pulse Resp BP Sys/Becker Pulse Ox Last 24 Hr 97.3 F-98.9 F 69-86 17-20 133-160/74-79 96-98 Exam: General: [Appears well with no apparent distress.] [Pleasant and cooperative. ] [Appears comfortable.] HEENT: [PERRL, normocephalic, atraumatic. Mucous membranes moist. No jaundice noted. Conjunctiva moist and clear, sclerae anicteric] Neck: Unable to assess for JVD due to habitus. No thyromegaly or lymphadenopathy noted. No carotid bruit appreciated Cardiac: [Regular rate and rhythm.] [No obvious murmur rub or gallop.] Lungs: [Clear to auscultation without accessory muscle use to assist the respiratory pattern.] Not requiring oxygen Abdomen: Soft, bowel sounds normoactive. Nontender and nondistended. No abdominal bruit or thrill noted. No masses noted. Musculoskeletal: No fluid collection. Decreased range of motion is noted. Extremities: No clubbing, cyanosis noted. [ No edema noted.] Upper extremity pulses 2+. Lower extremity pulses 2+. Capillary refill less than 3 seconds. Skin: No unusual lesions or rashes. No skin breakdown appreciated. Neuro: Awake, alert and oriented 3. Moves all extremities well without hemiparesis or paralysis. No essential tremor is appreciated. Result/EKG - Labs CBC & BMP: 02/12/17 04:33 02/12/17 04:33 Lab Results: I have reviewed the past 24 hour labs Labs: Laboratory Results - last 24 hr 02/11/17 02/11/17 02/11/17 12:16 16:07 20:31 WBC RBC Hgb Hct MCV MCH MCHC RDW Plt Count MPV Neut % (Auto) Lymph % (Auto) Wilson % (Auto) Eos % (Auto) Baso % (Auto) Neut # (Auto) Lymph # (Auto) Wilson # (Auto) Eos # (Auto) Baso # (Auto) Immature Gran % Nucleated RBC % Immature Gran # Nucleated RBCs # Immature Plt Fraction Sodium Potassium Chloride Carbon Dioxide Anion Gap BUN Creatinine GFR Calculation BUN/Creatinine Ratio Glucose POC Glucose 210 H 163 H 239 H Calculated Osmolality Calcium Total Bilirubin AST ALT Alkaline Phosphatase Total Protein Albumin Globulin Albumin/Globulin Ratio Lipase 02/12/17 02/12/17 02/12/17 04:33 04:33 04:33 WBC 5.5 RBC 3.73 L Hgb 9.7 L Hct 30.0 L MCV 80.4 L MCH 26 L MCHC 32.3 RDW 15.9 Plt Count 215 MPV 9.3 L Neut % (Auto) 56.0 Lymph % (Auto) 24.5 Wilson % (Auto) 15.3 H Eos % (Auto) 3.2 Baso % (Auto) 0.5 Neut # (Auto) 3.1 Lymph # (Auto) 1.4 Wilson # (Auto) 0.9 H Eos # (Auto) 0.2 Baso # (Auto) 0.0 Immature Gran % 0.5 Nucleated RBC % 0.0 Immature Gran # 0.03 Nucleated RBCs # 0.00 Immature Plt Fraction 0.0 Sodium 142 Potassium 4.0 Chloride 108 H Carbon Dioxide 27 Anion Gap 11.0 BUN 18 Creatinine 1.40 H GFR Calculation 43 BUN/Creatinine Ratio 12.00 Glucose 157 H POC Glucose Calculated Osmolality 287.1 Calcium 8.0 L Total Bilirubin 0.60 AST 12 ALT 14 Alkaline Phosphatase 68 Total Protein 6.1 L Albumin 2.9 L Globulin 3.2 Albumin/Globulin Ratio 0.9 L Lipase 543.0 H D - Diagnostic Findings Procedure: Chest x-ray: report reviewed by me, Ultrasound: report reviewed by me - EKG EKG results: interpreted by me EKG shows: sinus rhythm <Shin Dewey - Last Filed: 02/12/17 15:30> Cardiology - PN: Subj Interval history: I have personally interviewed and examined the patient. I reviewed the patient' s chart and have discussed this case with Yuliet Templeton NP. The patient he did have an episode of anginal quality chest pain with multiple risk factors coronary disease. She should have cardiac catheterization. The concern is been that she is in the process of resolving pancreatitis as well as acute renal insufficiency. Her creatinine did decrease to 1.2 yesterday is 1.4 today. We need to assure that her creatinine is stable prior to catheterization. Also would like to see her lipase come down a little bit further and make sure at least her pancreatitis is stable before giving contrast. She generally is otherwise doing fairly well, looks good and without specific complaints at this time. I did discuss with the patient and 1 of her daughters that she needs cardiac catheterization. I reviewed with them cardiac catheterization procedure as well as indication procedure how would be carried out the risk. I discussed cardiac catheterization and percutaneous coronary intervention with the patient and available family. I reviewed with them the indications for the procedure and the basis of how the procedure would be carried out. I also reviewed with them the risk of the procedure which include but not necessarily limited to access site bleeding, bruising, pain, swelling or vascular injury that may require emergency vascular surgery, blood transfusion, or thrombin injection. Also discussed the possibility of stroke, myocardial infarction, arrhythmia which may require electrocardioversion, and the possibility of dye reaction that would require medical therapy. Also discussed the possibility of coronary artery injury, ruptured, closure or perforation that may require emergency bypass surgery. We also discussed the possibility of from a major complication. Their questions were answered. They voice understanding and agree to proceed. We will probably carry out Sunday. I like to see what her renal function is tomorrow and give her another day or 2 to at least make baseline stabilize. Exam (Progress Note) - Constitutional Vitals: Period Temp Pulse Resp BP Sys/Becker Pulse Ox Last 24 Hr 97.3 F-98.9 F 69-76 17-20 131-160/69-77 96-98 Result/EKG - Labs CBC & BMP: 02/12/17 04:33 02/12/17 04:33 Labs: Laboratory Results - last 24 hr 02/11/17 02/11/17 02/12/17 16:07 20:31 04:33 WBC RBC Hgb Hct MCV MCH MCHC RDW Plt Count MPV Neut % (Auto) Lymph % (Auto) Wilson % (Auto) Eos % (Auto) Baso % (Auto) Neut # (Auto) Lymph # (Auto) Wilson # (Auto) Eos # (Auto) Baso # (Auto) Immature Gran % Nucleated RBC % Immature Gran # Nucleated RBCs # Immature Plt Fraction Sodium Potassium Chloride Carbon Dioxide Anion Gap BUN Creatinine GFR Calculation BUN/Creatinine Ratio Glucose POC Glucose 163 H 239 H Calculated Osmolality Calcium Total Bilirubin AST ALT Alkaline Phosphatase Total Protein Albumin Globulin Albumin/Globulin Ratio Lipase 543.0 H D 02/12/17 02/12/17 02/12/17 04:33 04:33 07:54 WBC 5.5 RBC 3.73 L Hgb 9.7 L Hct 30.0 L MCV 80.4 L MCH 26 L MCHC 32.3 RDW 15.9 Plt Count 215 MPV 9.3 L Neut % (Auto) 56.0 Lymph % (Auto) 24.5 Wilson % (Auto) 15.3 H Eos % (Auto) 3.2 Baso % (Auto) 0.5 Neut # (Auto) 3.1 Lymph # (Auto) 1.4 Wilson # (Auto) 0.9 H Eos # (Auto) 0.2 Baso # (Auto) 0.0 Immature Gran % 0.5 Nucleated RBC % 0.0 Immature Gran # 0.03 Nucleated RBCs # 0.00 Immature Plt Fraction 0.0 Sodium 142 Potassium 4.0 Chloride 108 H Carbon Dioxide 27 Anion Gap 11.0 BUN 18 Creatinine 1.40 H GFR Calculation 43 BUN/Creatinine Ratio 12.00 Glucose 157 H POC Glucose 186 H Calculated Osmolality 287.1 Calcium 8.0 L Total Bilirubin 0.60 AST 12 ALT 14 Alkaline Phosphatase 68 Total Protein 6.1 L Albumin 2.9 L Globulin 3.2 Albumin/Globulin Ratio 0.9 L Lipase 02/12/17 12:35 WBC RBC Hgb Hct MCV MCH MCHC RDW Plt Count MPV Neut % (Auto) Lymph % (Auto) Wilson % (Auto) Eos % (Auto) Baso % (Auto) Neut # (Auto) Lymph # (Auto) Wilson # (Auto) Eos # (Auto) Baso # (Auto) Immature Gran % Nucleated RBC % Immature Gran # Nucleated RBCs # Immature Plt Fraction Sodium Potassium Chloride Carbon Dioxide Anion Gap BUN Creatinine GFR Calculation BUN/Creatinine Ratio Glucose POC Glucose 255 H Calculated Osmolality Calcium Total Bilirubin AST ALT Alkaline Phosphatase Total Protein Albumin Globulin Albumin/Globulin Ratio Lipase
--- NOTE | 2017-02-12 12:05 | Hospitalist Progress Note ---
Assessment and Plan (1) Cardiac chest pain Status: Acute Assessment and plan: 1)cardiac chest pain- needs [facility]. cards arranging. No more chest pain. 2)anemia- no need for GI workup at this time, but may benefit as outpatient. iron ordered. on B12 also. 3)elevated lipase- remains up a bit, monitor. asymptomatic. eating regular diet. 4)DM- on glipizide and SSI. 5)HTN- ok on coreg, norvasc. montor. 6)renal insufficiency- her creatinine started at 2.4, now 1.4. baseline unknown. Good UOP. Current Visit: Yes (2) Acute renal failure Status: Acute Current Visit: Yes (3) Hyperkalemia Status: Acute Current Visit: Yes (4) Essential hypertension Status: Chronic Current Visit: Yes (5) Diabetes mellitus Status: Chronic Current Visit: Yes (6) Iron deficiency anemia Status: Acute Current Visit: Yes (7) Elevated lipase Status: Acute Current Visit: Yes Hospitalist: Subjective Interval history: Mrs Leblanc is feeling good today. No more chest pain or shortness of breath. No abdomnial pain or nausea. 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 Exam - Constitutional Vitals: Period Temp Pulse Resp BP Sys/Becker Pulse Ox Last 24 Hr 97.3 F-98.9 F 69-76 17-20 133-160/74-77 96-98 General appearance: no acute distress, over weight - Head Head exam: Present: normocephalic, atraumatic - Eye Eye exam: Present: EOMI. Absent: scleral icterus - Respiratory Respiratory exam: Present: clear to auscultation bilaterally - Cardiovascular Cardiovascular exam: Present: regular rate and rhythm - GI/Abdominal GI/Abdominal exam: Present: normal bowel sounds, soft. Absent: tenderness - Extremities Exam Extremities exam: Absent: edema - Neurological Exam Neurological exam: Present: alert, oriented X3, CN II-XII intact. Absent: motor sensory deficit - Psychiatric Psychiatric exam: Present: normal affect, normal mood - Skin Skin exam: Present: warm, dry Results - Labs CBC & BMP: 02/12/17 04:33 02/12/17 04:33
--- NOTE | 2017-02-12 17:35 | Sleep Medicine Consult ---
Assessment and Plan (1) Unspecified sleep apnea Status: Acute Assessment and plan: This patient lacks significant symptomatology of sleep apnea but does have medical comorbidities concerning for sleep apnea with hypertension and type 2 diabetes and possible coronary artery disease. We will initiate evaluation with home sleep testing while awaiting her heart cath and follow-up on those results. If this is negative, I would recommend in lab polysomnography after discharge. Current Visit: Yes (2) Essential hypertension Status: Chronic Assessment and plan: The prevalence rate for obstructive sleep apnea patients with hypertension is 35 %. That rate can be as high as 80% in patients who require 4 or more medications for blood pressure control. Current Visit: Yes (3) Diabetes mellitus Status: Chronic Assessment and plan: The prevalence rate for obstructive sleep apnea in patients with type 2 diabetes can be as high as 86%. Those patients with moderate to severe obstructive sleep apnea are at a greater risk for diabetic nephropathy and neuropathy. Compliance with CPAP therapy for these patients can lead to improvement in glycemic control and improvement in insulin sensitivity. Current Visit: Yes History of Present Illness Chief complaint: Sleep apnea History of present illness: Ms. Leblanc is a 71 year old female admitted with chest pain, hyperkalemia, and elevated lipase. She is scheduled to undergo heart cath later this week. She has significant medical problems that include type 2 diabetes and hypertension. There was concern for sleep apnea. The patient does have a history of snoring but denies loud disruptive snoring or ever being told that she awakens from sleep short of breath. She has a stop bang score of only 2 and a normal Ronan sleepiness score of 5. She does have discomfort in her legs at times. 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 and awakens each morning about 545 and is at work by 7 AM. She gets off at 4:30 in the afternoon and usually will go back to sleep about 8 or 830. She denies any significant issues with disruption from sleep due to nocturia or shortness of breath. She denies any history of significant daytime sleepiness or fatigue. Home Medications Medication Instructions Recorded Confirmed Type Amitriptyline [Elavil] 100 mg PO BEDTIME 02/09/17 02/09/17 History Aspirin EC Tab 325 mg PO DAILY 02/09/17 02/09/17 History Carvedilol [Coreg] 25 mg PO BID 02/09/17 02/09/17 History Lisinopril/Hydrochlorothiazide 1 each PO DAILY 02/09/17 02/09/17 History [Lisinopril-Hctz 20-25 mg Tab] Metformin HCl 1,000 mg PO BID 02/09/17 02/09/17 History Pravastatin [Pravachol] 40 mg PO BEDTIME 02/09/17 02/09/17 History Spironolactone [Aldactone] 25 mg PO DAILY 02/09/17 02/09/17 History amLODIPine [Norvasc] 10 mg PO DAILY 02/09/17 02/09/17 History glipiZIDE [Glipizide Xl] 10 mg PO BID 02/09/17 02/09/17 History traMADol TAB [Ultram] 50 mg PO BID PRN 02/09/17 02/09/17 History Allergies Allergy/AdvReac Type Severity Reaction Status Date / Time No Known Allergies Allergy Unverified 02/09/17 14:05 Review of systems: Otherwise unremarkable from a sleep medicine standpoint. Exam (Pulmonay) H&P - Constitutional Vitals: Period Temp Pulse Resp BP Sys/Becker Pulse Ox Last 24 Hr 97.3 F-98.9 F 69-83 17-20 131-162/69-77 96-98 Exam: She is alert and responsive in no acute distress. Pupils equal round reactive to light and accommodation. Extraocular movements intact. Oropharynx with a class IV Mallampati exam. She has a 15 inch neck circumference. No supraclavicular adenopathy is noted. Chest with symmetrical breath sounds without focal wheeze, rhonchi, or rales. Cardiac exam reveals a regular rhythm without murmur or gallop. Abdomen soft nontender without palpable hepatosplenomegaly or mass. Extremities are without clubbing, cyanosis, or edema. Neurologically, grossly intact. The patient moves all extremities with good strength. Medical,Surgical,& Family Hx - Medical History Cardio: History of: Hypertension Endocrine: History of: Diabetes Mellitus (NIDDM), Dyslipidemia - Surgical History Abdominal Surgeries: Surgical HX of: Appendectomy Reproductive Surgeries: Surgical HX of;: Section Orthopedic Surgeries: Surgical HX of;: Orthopedic Surgery (metal plate in right leg) - Family History Family History: Reports;: Family Heart Disease (mother and younger brother with recent MIs) - Social History Smoking Status: Never smoker Frequency of Alcohol Use: None Type of Drug Use: None Results - Labs CBC & BMP: 02/12/17 04:33 02/12/17 04:33 Lab Results: I have reviewed the past 24 hour labs Labs: Patient had a TSH of less than 1. She also does have significant anemia and a low ferritin level.
[2017-02-12] MEDS: AMITRIPTYLINE 25 MG TABLET PO SCH (22:40)
[2017-02-12] MEDS: PRAVASTATIN 40 MG TABLET PO SCH (22:40)
[2017-02-12] MEDS: ENOXAPARIN 40 MG/0.4 ML SYRINGE SUBCUT SCH (22:40)
[2017-02-13 04:59] LABS: Basophils % 0.5 % (0.0-0.8); Eosinophils # 0.2 10*3/uL (0.0-0.87); Eosinophils % 2.9 % (0.00-10.9); Hemoglobin 9.7 GM/DL (12.0-16.0); Immature Granulocytes % 0.5 %; Immature Granulocytes Absolute 0.03 #; Lymphocytes # 1.3 10*3/uL (1.4-4.0); Lymphocytes % 22.9 % (21.3-54.2); Mean Corpuscular HGB Conc 32.3 GM/DL (32-36); Mean Corpuscular Hemoglobin 26 PG (27-34); Mean Corpuscular Volume 80.2 FL (87-102); Mean Platelet Volume 9.4 FL (9.6-12.0); Monocytes # 0.7 10*3/uL (0.11-0.8); Monocytes % 11.5 % (1.7-12.7); Neutrophils # 3.6 10*3/uL (1.4-7.4); Neutrophils % 61.7 % (38.7-73.9); Platelet Count 227 T/CUMM (130-400); Red Blood Count 3.74 MC/CUMM (3.8-5.5); Red Cell Distribution Width 15.8 % (9.3-17.3); White Blood Count 5.8 T/CUMM (4-12)
[2017-02-13 05:17] LABS: Calcium 8.6 MG/DL (8.5-10.1); Magnesium 1.6 MG/DL (1.8-2.4); Osmolality,Calculated 284.3 MOS/KG (273-304); Osmolality,Calculated 286.1 MOS/KG (273-304); Potassium 3.8 MMOL/L (3.5-5.1)
[2017-02-13] MEDS: ACETAMINOPHEN 325 MG TABLET PO PRN ×2 (07:46→11:51)
--- NOTE | 2017-02-13 08:09 | Cardiology Progress Note ---
Assessment and Plan (1) Hypomagnesemia Status: Acute Assessment and plan: We will place patient on replacement therapy. Current Visit: Yes (2) Chest pain Status: Acute Assessment and plan: Patient has not had any further chest pain the last 2 days. We will plan cardiac catheterization as we have discussed with the patient. This is because her risk factors for coronary disease. Symptomatology certainly sounds ischemic in nature. Current Visit: Yes (3) Acute renal failure Status: Resolved Assessment and plan: This certainly has improved renal function. We will repeat her creatinine tomorrow for catheterization contrast. Current Visit: Yes (4) Essential hypertension Status: Chronic Assessment and plan: Blood pressures fairly stable. It may be a little higher than we want that we will continue to monitor this. Current Visit: Yes (5) Diabetes mellitus Status: Chronic Assessment and plan: Primary service is monitoring this. Current Visit: Yes (6) Pancreatitis Status: Acute Assessment and plan: Clinically this is resolving. We will check a lipase before contrast tomorrow. Current Visit: Yes Qualifiers: Chronicity: acute Acute pancreatitis complication: unspecified (7) Anemia Status: Acute Assessment and plan: This is being evaluated. Current Visit: Yes (8) Iron deficiency anemia Status: Acute Assessment and plan: This is being evaluated. Current Visit: Yes (9) Elevated lipase Status: Acute Assessment and plan: We will recheck this tomorrow prior to contrast. Current Visit: Yes Cardiology - PN: Subj Interval history: Patient today is generally doing well. She denies any chest pain shortness of breath. States she has a decent fairly good appetite. She has had no nausea vomiting or other symptomatology. She had a reasonably good night. The patient's creatinine is 1.2 today with a magnesium of 1.6. BUN is 15. Other electrolytes are unremarkable. Patient's CBC remained stable with a hematocrit 30 hemoglobin of 9.7. Our present plan will be to carry out cardiac catheterization tomorrow. Again I reviewed this procedure as I did yesterday with the patient reviewing the indication procedure as well as how would be carried out the risk. She has no further questions at this time. Tomorrow we will re-check her lab work especially her creatinine and lipase. Exam (Progress Note) - Constitutional Vitals: Period Temp Pulse Resp BP Sys/Becker Pulse Ox Last 24 Hr 96.4 F-99.9 F 73-83 17-20 131-167/62-76 96-98 Exam: General appearance: Obese, no acute distress HEENT exam: normal inspection, atraumatic Neck exam: normal inspection no JVD. No carotid bruit. Trachea is in midline Respiratory/lungs exam: clear to auscultation bilaterally good air movement. Cardiovascular exam: regular rate and rhythm, no murmur or gallop or rub. No precordial lift. Chest wall exam: nontender GI/Abdominal exam: normal bowel sounds, soft, nontender, no abdominal bruits or pulsatile masses. Extremeties/musculoskeletal: normal inspection without edema or cyanosis. Neurological exam: alert, oriented X3, no focal deficits Psychiatric exam: normal affect, normal mood. Cognitive function is grossly normal. Skin exam: normal color, warm Result/EKG - Labs CBC & BMP: 02/13/17 04:17 02/13/17 04:17 Lab Results: I have reviewed the past 24 hour labs Labs: Laboratory Results - last 24 hr 02/12/17 02/12/17 02/12/17 07:54 12:35 16:28 WBC RBC Hgb Hct MCV MCH MCHC RDW Plt Count MPV Neut % (Auto) Lymph % (Auto) [place] % (Auto) Eos % (Auto) Baso % (Auto) Neut # (Auto) Lymph # (Auto) [place] # (Auto) Eos # (Auto) Baso # (Auto) Immature Gran % Nucleated RBC % Immature Gran # Nucleated RBCs # Immature Plt Fraction Sodium Potassium Chloride Carbon Dioxide Anion Gap BUN Creatinine GFR Calculation BUN/Creatinine Ratio Glucose POC Glucose 186 H 255 H 162 H Calculated Osmolality Calcium Magnesium Ferritin 02/12/17 02/13/17 02/13/17 20:35 04:17 04:17 WBC 5.8 RBC 3.74 L Hgb 9.7 L Hct 30.0 L MCV 80.2 L MCH 26 L MCHC 32.3 RDW 15.8 Plt Count 227 MPV 9.4 L Neut % (Auto) 61.7 Lymph % (Auto) 22.9 [place] % (Auto) 11.5 Eos % (Auto) 2.9 Baso % (Auto) 0.5 Neut # (Auto) 3.6 Lymph # (Auto) 1.3 L [place] # (Auto) 0.7 Eos # (Auto) 0.2 Baso # (Auto) 0.0 Immature Gran % 0.5 Nucleated RBC % 0.0 Immature Gran # 0.03 Nucleated RBCs # 0.00 Immature Plt Fraction 0.0 Sodium 142 Potassium 3.8 Chloride 108 H Carbon Dioxide 26 Anion Gap 11.8 BUN 15 Creatinine 1.20 H GFR Calculation 52 BUN/Creatinine Ratio 12.00 Glucose 150 H POC Glucose 181 H Calculated Osmolality 286.1 Calcium 8.6 Magnesium Ferritin 02/13/17 02/13/17 04:17 04:17 WBC RBC Hgb Hct MCV MCH MCHC RDW Plt Count MPV Neut % (Auto) Lymph % (Auto) [place] % (Auto) Eos % (Auto) Baso % (Auto) Neut # (Auto) Lymph # (Auto) [place] # (Auto) Eos # (Auto) Baso # (Auto) Immature Gran % Nucleated RBC % Immature Gran # Nucleated RBCs # Immature Plt Fraction Sodium 141 Potassium 3.8 Chloride 108 H Carbon Dioxide 25 Anion Gap 11.8 BUN 15 Creatinine 1.20 H GFR Calculation 52 BUN/Creatinine Ratio 12.00 Glucose 150 H POC Glucose Calculated Osmolality 284.3 Calcium 8.6 Magnesium 1.6 L Ferritin 151.0 - Impressions Impressions: Telemetry was sinus rhythm without dysrhythmias.
[2017-02-13] MEDS ORDERED: diphenhydrAMINE CAP 25 MG CAPSULE PO ONE (08:15)
[2017-02-13] MEDS ORDERED: DIAZEPAM 5 MG TABLET PO ONE (08:15)
[2017-02-13] MEDS ORDERED: MAGNESIUM SULF RIDER 2 GM in PREMIX 1 EACH IV PRN ×2 (08:15→08:20)
[2017-02-13] MEDS ORDERED: POTASSIUM CHLORIDE RIDER 10 MEQ in PREMIX 1 EACH IV PRN (08:15)
[2017-02-13] MEDS: SODIUM CHLORIDE 0.45% 1,000 ML IV SCH (08:50)
[2017-02-13] MEDS: glipiZIDE 5 MG TABLET PO SCH (08:52)
[2017-02-13] MEDS: CARVEDILOL 12.5 MG TABLET PO SCH ×2 (08:53→21:50)
[2017-02-13] MEDS: INSULIN REGULAR 100 UNIT/ML SUBCUT SCH ×4 (08:53→21:51)
[2017-02-13] MEDS: ASPIRIN EC 325 MG TABLET PO SCH (08:53)
[2017-02-13] MEDS: amLODIPine 10 MG TABLET PO SCH (08:54)
[2017-02-13] MEDS: PANTOPRAZOLE 40 MG TABLET PO SCH ×2 (08:54→21:51)
[2017-02-13] MEDS: CYANOCOBALAMIN 1000 MCG/1 ML VIAL SUBCUT SCH (08:54)
--- NOTE | 2017-02-13 13:22 | Hospitalist Progress Note ---
Assessment and Plan (1) Cardiac chest pain Status: Acute Assessment and plan: 1)cardiac chest pain- needs [facility]. Dr Peck to do cath tomorrow. 2)anemia- no need for GI workup at this time, but may benefit as outpatient. iron ordered. on B12 also. 3)elevated lipase- remains up a bit, monitor. asymptomatic. eating regular diet. repeat liapse today. Asymptomatic. 4)DM- on glipizide and SSI. 5)HTN- ok on coreg, norvasc. montor. 6)renal insufficiency- her creatinine started at 2.4, now 1.2. baseline unknown. Good UOP. Current Visit: Yes (2) Acute renal failure Status: Resolved Current Visit: Yes (3) Hyperkalemia Status: Resolved Current Visit: Yes (4) Essential hypertension Status: Chronic Current Visit: Yes (5) Diabetes mellitus Status: Chronic Current Visit: Yes (6) Iron deficiency anemia Status: Acute Current Visit: Yes (7) Elevated lipase Status: Acute Current Visit: Yes Hospitalist: Subjective Interval history: Mrs Leblanc feels good and denies chest pain or shortness of breath. She is visiting with family. No nausea. Waiting for cath tomorrow. Exam - Constitutional Vitals: Period Temp Pulse Resp BP Sys/Beckre Pulse Ox Last 24 Hr 96.4 F-99.9 F 73-83 17-20 134-167/62-76 96-97 General appearance: no acute distress, morbidly obese - Eye Eye exam: Present: EOMI. Absent: scleral icterus - Respiratory Respiratory exam: Present: clear to auscultation bilaterally. Absent: wheezes - Cardiovascular Cardiovascular exam: Present: regular rate and rhythm - GI/Abdominal GI/Abdominal exam: Present: normal bowel sounds, soft. Absent: tenderness - Extremities Exam Extremities exam: Absent: edema Results - Labs CBC & BMP: 02/13/17 04:17 02/13/17 04:17 Lab Results: I have reviewed the past 24 hour labs
[2017-02-13] MEDS ORDERED: IRON SUCROSE 200 MG in SODIUM CHLORIDE 0.9% 100 ML IV ONE (15:00)
[2017-02-13] MEDS: ENOXAPARIN 40 MG/0.4 ML SYRINGE SUBCUT SCH (21:50)
[2017-02-13] MEDS: PRAVASTATIN 40 MG TABLET PO SCH (21:50)
[2017-02-13] MEDS: AMITRIPTYLINE 25 MG TABLET PO SCH (21:51)
[2017-02-14 05:56] LABS: Basophils % 0.7 % (0.0-0.8); Eosinophils # 0.3 10*3/uL (0.0-0.87); Eosinophils % 4.6 % (0.00-10.9); Hematocrit 31.2 VOL% (35.7-47.0); Hemoglobin 10.2 GM/DL (12.0-16.0); Immature Granulocytes % 0.6 %; Immature Granulocytes Absolute 0.03 #; Lymphocytes # 1.2 10*3/uL (1.4-4.0); Mean Corpuscular HGB Conc 32.7 GM/DL (32-36); Mean Corpuscular Hemoglobin 26 PG (27-34); Mean Platelet Volume 9.2 FL (9.6-12.0); Monocytes # 0.7 10*3/uL (0.11-0.8); Monocytes % 13.3 % (1.7-12.7); Neutrophils # 3.1 10*3/uL (1.4-7.4); Neutrophils % 57.8 % (38.7-73.9); Platelet Count 196 T/CUMM (130-400); Red Cell Distribution Width 15.9 % (9.3-17.3); White Blood Count 5.4 T/CUMM (4-12)
[2017-02-14 06:40] LABS: Calcium 8.2 MG/DL (8.5-10.1); Magnesium 1.6 MG/DL (1.8-2.4); Osmolality,Calculated 285.3 MOS/KG (273-304); Potassium 3.9 MMOL/L (3.5-5.1)
[2017-02-14 06:45] LABS: Calcium 8.2 MG/DL (8.5-10.1); Osmolality,Calculated 283.4 MOS/KG (273-304); Potassium 3.9 MMOL/L (3.5-5.1)
--- NOTE | 2017-02-14 06:53 | Cardiology Progress Note ---
Assessment and Plan (1) Hypomagnesemia Status: Acute Assessment and plan: Patient is on replacement protocol. Current Visit: Yes (2) Chest pain Status: Acute Assessment and plan: This is been stable certainly has risk for coronary artery disease. Current Visit: Yes (3) Acute renal failure Status: Resolved Assessment and plan: This certainly has improved renal function. We await her renal function from today. Current Visit: Yes (4) Essential hypertension Status: Chronic Assessment and plan: Blood pressures fairly stable. We will continue to monitor this. Current Visit: Yes (5) Diabetes mellitus Status: Chronic Assessment and plan: Primary service is monitoring this. Current Visit: Yes (6) Pancreatitis Status: Acute Assessment and plan: Clinically this is resolving. Await her lack patient today. Current Visit: Yes Qualifiers: Chronicity: acute Acute pancreatitis complication: unspecified (7) Anemia Status: Acute Assessment and plan: This is being evaluated. Her H&H is stable. Current Visit: Yes (8) Iron deficiency anemia Status: Acute Assessment and plan: This is being evaluated. Current Visit: Yes (9) Elevated lipase Status: Acute Assessment and plan: We will recheck this tomorrow prior to contrast. This is secondary to her pancreatitis. Current Visit: Yes Cardiology - PN: Subj Interval history: Patient doing well this morning. She has had no chest pain or shortness of breath. Again I discussed heart catheterization with the patient reviewing the indication procedure had be carried out the risk. Her CBC this morning is stable. I do not have her chemistries back yet and we are awaiting those. We plan on proceeding with cardiac catheterization this morning. Her telemetry continues to be normal sinus rhythm. Exam (Progress Note) - Constitutional Vitals: Period Temp Pulse Resp BP Sys/Becker Pulse Ox Last 24 Hr 96.7 F-99.5 F 72-78 16-22 122-160/65-75 93-98 Exam: General appearance: Obese, no acute distress HEENT exam: normal inspection, atraumatic Neck exam: normal inspection no JVD. No carotid bruit. Trachea is in midline Respiratory/lungs exam: clear to auscultation bilaterally good air movement. Cardiovascular exam: regular rate and rhythm, no murmur or gallop or rub. No precordial lift. Chest wall exam: nontender GI/Abdominal exam: normal bowel sounds, soft, nontender, no abdominal bruits or pulsatile masses. Extremeties/musculoskeletal: normal inspection without edema or cyanosis. Neurological exam: alert, oriented X3, no focal deficits Psychiatric exam: normal affect, normal mood. Cognitive function is grossly normal. Skin exam: normal color, warm Result/EKG - Labs CBC & BMP: 02/14/17 05:39 02/13/17 04:17 Lab Results: I have reviewed the past 24 hour labs Labs: Laboratory Results - last 24 hr 02/13/17 02/13/17 02/13/17 04:13 08:11 11:41 WBC RBC Hgb Hct MCV MCH MCHC RDW Plt Count MPV Neut % (Auto) Lymph % (Auto) [place] % (Auto) Eos % (Auto) Baso % (Auto) Neut # (Auto) Lymph # (Auto) [place] # (Auto) Eos # (Auto) Baso # (Auto) Immature Gran % Nucleated RBC % Immature Gran # Nucleated RBCs # Immature Plt Fraction POC Glucose 173 H 196 H Lipase 476.0 H D 02/13/17 02/13/17 02/13/17 16:34 19:28 20:56 WBC RBC Hgb Hct MCV MCH MCHC RDW Plt Count MPV Neut % (Auto) Lymph % (Auto) [place] % (Auto) Eos % (Auto) Baso % (Auto) Neut # (Auto) Lymph # (Auto) [place] # (Auto) Eos # (Auto) Baso # (Auto) Immature Gran % Nucleated RBC % Immature Gran # Nucleated RBCs # Immature Plt Fraction POC Glucose 177 H 232 H 238 H Lipase 02/14/17 05:39 WBC 5.4 RBC 3.90 Hgb 10.2 L Hct 31.2 L MCV 80.0 L MCH 26 L MCHC 32.7 RDW 15.9 Plt Count 196 MPV 9.2 L Neut % (Auto) 57.8 Lymph % (Auto) 23.0 [place] % (Auto) 13.3 H Eos % (Auto) 4.6 Baso % (Auto) 0.7 Neut # (Auto) 3.1 Lymph # (Auto) 1.2 L [place] # (Auto) 0.7 Eos # (Auto) 0.3 Baso # (Auto) 0.0 Immature Gran % 0.6 Nucleated RBC % 0.0 Immature Gran # 0.03 Nucleated RBCs # 0.00 Immature Plt Fraction 0.0 POC Glucose Lipase - Impressions Impressions: Telemetry with normal sinus rhythm without dysrhythmias.
--- NOTE | 2017-02-14 06:55 | History and Physical Update ---
Sedation H&P Update - History and Physical H&P was reviewed, the patient examined and there: are no changes in the patients condition since last H&P was completed. - Dictation Physical: refer to H&P completed by admitting physician - Physical Exam Mental Status: alert and oriented Heart: regular rate and rhythm Lung: clear to auscultation Abdomen: within normal limits Vitals: within normal limits History and Physical Changes: None - Sedation Plan for Sedation: moderate Patient Consent: Procedure disscussed with patient and patinet has consented., Risks and benefits were discussed with patient,including infection,, bleeding, injury to surrounding structures, seizure, temporary nerve, Patient understands and accepts potential risks/benefits and agrees to, proceed. ASA Class: III Airway Assessment: Class III: Soft palate, base of uvula visible
[2017-02-14] MEDS ORDERED: diphenhydrAMINE CAP 50 MG CAPSULE ONE (07:36)
[2017-02-14] MEDS ORDERED: DIAZEPAM 5 MG TABLET ONE (07:37)
[2017-02-14] MEDS: amLODIPine 10 MG TABLET PO SCH ×2 (07:41→10:44)
[2017-02-14] MEDS: ASPIRIN EC 325 MG TABLET PO SCH ×2 (07:41→10:44)
[2017-02-14] MEDS: PANTOPRAZOLE 40 MG TABLET PO SCH ×2 (07:42→10:44)
[2017-02-14] MEDS: CARVEDILOL 12.5 MG TABLET PO SCH ×2 (07:42→10:44)
[2017-02-14] MEDS: SODIUM CHLORIDE 0.45% 1,000 ML IV SCH (07:45)
[2017-02-14] MEDS ORDERED: fentaNYL 100 MCG/2 ML VIAL ONE (08:06)
[2017-02-14] MEDS ORDERED: MIDAZOLAM 2 MG/2 ML VIAL ONE (08:06)
[2017-02-14] MEDS ORDERED: LIDOCAINE 1% 20 ML VIAL ONE (08:06)
[2017-02-14] MEDS ORDERED: GLUCAGON 1 MG VIAL IM PRN (08:39)
[2017-02-14] MEDS ORDERED: DEXTROSE 50% 25 GM/50 ML VIAL IV PRN (08:39)
--- NOTE | 2017-02-14 08:39 | Operative Note ---
Date of procedure: 02/14/17 Procedure Preformed: Left heart catheterization without LV gram, selective right left coronary angiograms. Surgeon / Physician: Shin Peck Reliability Manager: Zenobia Quevedo Post-op diagnosis: same Findings: 30-40% eccentric stenosis in the LAD otherwise coronary arteries widely patent. LVEDP minimally elevated at 19. Specimens: none sent Estimated blood loss: minimal Condition: stable Anesthesia: local, conscious sedation Disposition: floor
--- NOTE | 2017-02-14 09:05 | Cardiac Catheterization ---
Date of Procedure:: 02/14/17 Pre-op Diagnosis: Chest pain of anginal quality with multiple risk factors. Post-op diagnosis: same Procedure: LEFT HEART CATHERIZATION History: 71-year-old female with anginal quality chest pain. She has risk factors coronary disease. Now for definitive diagnosis evaluation. Pre-Op diagnosis: Chest pain of anginal quality, coronary disease. Postoperative diagnosis: Mild coronary disease of the LAD. Otherwise coronary arteries are patent. Procedures: 1. Left heart catheterization. 2. Selective left and right coronary angiograms. 3. Right common femoral artery angiogram with Angio-Seal hemostasis. Equipment: 6 [place] arterial sheath, 6 [place] diagnostic JL4 and JR4 diagnostic catheters. A 6 [place] Angio-Seal hemostatic device. Medications: Preoperative Benadryl and Valium given by mouth. Lidocaine 1% local anesthesia 10 mls administered by myself. Intraprocedure patient received Versed 2 mgs IVP, fentanyl 50 mcg IVP. Complications: None immediate. Contrast: Visipaque 66 milliliters. Description of procedure: After informed consent the patient was given preoperative medications and brought to the catheterization laboratory where their right groin was prepped and draped in usual fashion. IV sedation was then obtained after which local anesthesia was administered at the right groin over the right common femoral artery. Using modified Seldinger technique the right common femoral artery was cannulated with 6 [place] arterial sheath placed. Right coronary catheter was then advanced over guidewire retrograde through the aorta. Catheter was used to cross the aortic valve or left ventricular pressure measurement put pressure into the aortic root. At this point right cardiac catheter was used to obtain right coronary angiograms in multiple projections. We then exchanged for the JL4 diagnostic coronary catheter which was then used to cannulate the left main coronary artery and angiograms were obtained in multiple projections. We reviewed the patient's angiograms. The left coronary catheter and pullback of the sheath in right comfort angiogram was obtained. Angio-Seal hemostasis the right cuff are then was obtained. Hemodynamic data: LV 150/-2, EDP 19; AO root 137/70, mean 97. Review of the tracing there is really no significant gradient. Left ventricular angiogram: This is not done to conserve contrast patient with renal dysfunction. Left main coronary artery angiogram: Left main coronary is a medium large size vessel bifurcating the LAD and circumflex arteries. This vessel is without stenosis or disease. Left anterior descending artery angiogram: The LAD is a medium caliber vessel proximally that extends to the posterior apical region. First and is a medium caliber vessel. The LAD just past the first diagonal branch has an eccentric 30 -40% stenosis there is nonocclusive. GAURI-3 flow is present. There is no other disease of the LAD proper branches. Circumflex artery angiogram: Circumflex arteries a medium sized vessel that is nondominant. The first and second obtuse marginal branches are very small. Third obtuse marginal branch is medium caliber bifurcating vessel comes large area of the posterior myocardium. Beyond this circumflex terminates in the form of small posterior ventricular branch. There is no stenosis or disease in the circumflex artery proper or branches. Right coronary artery angiogram: The RCA is a medium caliber dominant vessel PDA being small medium caliber vessel with posterior lateral branches being small caliber and long vessels. The AV node artery has takeoff the distal RCA. There was no stenosis or other disease of the RCA. This vessel is widely patent. Right common femoral artery angiogram: Right comfort artery is patent with the sheath inserting the common femoral artery. Successful Angio-Seal hemostasis was obtained. Impression: 1. LV gram was not obtained to conserve contrast. LVEF was noted on echocardiogram. 2. LVEDP is mildly elevated at 19 mmHg. 3. There is a gradient across the aortic valve but this appears to be minimal if truly present. 4. The RCA is widely patent and dominant. 5. Left main coronary is widely patent. 6. Left anterior descending artery with 30-40% proximal mid stenosis with GAURI-3 flow. 7. Circumflex arteries widely patent. 8. Right comfort arteries widely patent successfully initial hemostasis. Discussion: We will marked the patient post catheterization. She will need risk factor modification with her LAD stenosis. This stenosis noted he is not hemodynamically significant. We will discuss her findings and plans with the patient. Implants: None. Anesthesia: local, moderate conscious sedation Surgeon / Physician: Shin Peck Senior Php Software Developer: other (Zenobia Quevedo RN) Estimated blood loss: minimal Specimens: none sent Condition: stable Disposition: floor - Medications / Follow-up Referrals: Shin Peck MD [Physician] - 1 Week (One-week follow-up to reevaluate her catheterization site and to discuss her findings and plans.)
[2017-02-14] MEDS: INSULIN REGULAR 100 UNIT/ML SUBCUT SCH ×2 (09:15→12:01)
[2017-02-14] MEDS: glipiZIDE 5 MG TABLET PO SCH (09:15)
[2017-02-14] MEDS: ACETAMINOPHEN 325 MG TABLET PO PRN ×2 (10:22→15:15)
--- NOTE | 2017-02-14 10:34 | Discharge Summary ---
<Sadie Hardin - Last Filed: 02/14/17 12:19> Hospital Course - Hospital Course Hospital Course: Ms Leblanc with PMHx of HTN, DM; presented to the ED on 02/09/17 for c/o chest pain and shortness of breath with associated nausea and diaphoresis. Labs in the ED were significant for K 6.9; BUN 56 and creatinine 2.40; Toponin <0.015. Lipase 814.0. EKG negative for ST elevation. CXR: Impression: Nonspecific interstitial prominence of the lungs diffusely, possibly airways disease or mild fluid overload. Borderline cardiomegaly. Doppler study: showed NO evidence of DVT. Hospital medicine consulted for admit for further evaluation of chest pain, hyperkalemia, pancreatitis, acute renal failure. Cardiology was consulted for further evaluation of chest pain. ECHO: IMPRESSIONS Normal LV systolic function , ejection fraction 55%. Grade 1/4 diastolic dysfunction (impaired relaxation). Mild concentric left ventricular hypertrophy. Mild left atrial enlargement. Mild right ventricular dilation. Trace mitral and tricuspid regurgitation. Trivial pericardial effusion. Serial troponins were negative. Improvement of renal function but continued to have some cardiac discomfort; Left heart Cardiac Catherization was completed and Impression: 1. LV gram was not obtained to conserve contrast. LVEF was noted on echocardiogram. 2. LVEDP is mildly elevated at 19 mmHg. 3. There is a gradient across the aortic valve but this appears to be minimal if truly present. 4. The RCA is widely patent and dominant. 5. Left main coronary is widely patent. 6. Left anterior descending artery with 30-40% proximal mid stenosis with GAURI-3 flow. 7. Circumflex arteries widely patent. 8. Right comfort arteries widely patent successfully initial hemostasis. Chest pain improved and no shortness of breath. labs improved. Patient feeling better. 02/14/17 Patient will be discharged home today. She will need to follow up with Dr Peck in 1 week. She will repeat BMP in 1 week as well to check potassium. I have seen and examined Ms Leblanc and agree with the course outlined above. Her cath looked good today . She is anxious to go back to work, but will follow DR Peck's post cath instructions. Her aldactone ahs been stopped due to her hyperkalemia on admission but i have restarted her lisinopril. She should have BMP in a week to recheck renal function and potassium. Specialty Discharge - Follow Up or Referrals Follow up with: Your, PCP [Other] (1 week) Shin Peck MD [Physician] - 02/23/17 8:20 am (One-week follow-up to reevaluate her catheterization site and to discuss her findings and plans.) Discharge Plan - Discharge Data Disposition: Disch To Home/Self Care - Discharge Medications New Carvedilol [Coreg] 12.5 mg PO BID #60 tablet Cyanocobalamin Tab [Vitamin B12 Tab] 1,000 mcg PO DAILY #30 tablet Continue Aspirin EC Tab 325 mg PO DAILY amLODIPine [Norvasc] 10 mg PO DAILY Metformin HCl 1,000 mg PO BID Amitriptyline [Elavil] 100 mg PO BEDTIME glipiZIDE [Glipizide Xl] 10 mg PO BID Pravastatin [Pravachol] 40 mg PO BEDTIME traMADol TAB [Ultram] 50 mg PO BID PRN PRN Reason: Pain Lisinopril/Hydrochlorothiazide [Lisinopril-Hctz 20-25 mg Tab] 1 each PO DAILY Discontinued Spironolactone [Aldactone] 25 mg PO DAILY Carvedilol [Coreg] 25 mg PO BID - Follow Up or Referral Follow Up: Your, PCP [Other] (1 week) Shin Peck MD [Physician] - 02/23/17 8:20 am (One-week follow-up to reevaluate her catheterization site and to discuss her findings and plans.) - Forms/Instructions Instructions: Coronary Artery Disease (GEN), Left Heart Catheterization (DC), Heart Healthy Diet (GEN) Exam - Constitutional Vitals: Period Temp Pulse Resp BP Sys/Becker Pulse Ox Last 24 Hr 96.7 F-99.5 F 71-82 16-22 122-171/65-84 92-98 Discharge Results Procedures and tests throughout hospitalization: Pending Orders 02/09/17 18:18 UA [Urinalysis] Stat 02/11/17 11:23 Occult Blood, Stool Stat 02/14/17 06:43 CL heart Routine 02/15/17 04:00 BMP w/ Mg [Basic Metabolic Panel w/Mg] IN AM Basic Metabolic Panel IN AM CBC [Comp Blood Count Auto Diff] IN AM Ferritin IN AM Iron IN AM 02/16/17 04:00 BMP w/ Mg [Basic Metabolic Panel w/Mg] IN AM CBC [Comp Blood Count Auto Diff] IN AM Labs on day of discharge: Labs from last 24 hours 02/14/17 02/14/17 02/14/17 11:59 07:25 05:39 WBC RBC Hgb Hct MCV MCH MCHC RDW Plt Count MPV Neut % (Auto) Lymph % (Auto) [place] % (Auto) Eos % (Auto) Baso % (Auto) Neut # (Auto) Lymph # (Auto) [place] # (Auto) Eos # (Auto) Baso # (Auto) Immature Gran % Nucleated RBC % Immature Gran # Nucleated RBCs # Immature Plt Fraction Sodium 140 Potassium 3.9 Chloride 108 H Carbon Dioxide 26 Anion Gap 9.9 BUN 15 Creatinine 1.10 H GFR Calculation 57 BUN/Creatinine Ratio 13.00 Glucose 173 H POC Glucose 152 H 202 H Calculated Osmolality 283.4 Calcium 8.2 L Magnesium Transferrin Lipase 498.0 H 02/14/17 02/14/17 02/13/17 05:39 05:39 20:56 WBC 5.4 RBC 3.90 Hgb 10.2 L Hct 31.2 L MCV 80.0 L MCH 26 L MCHC 32.7 RDW 15.9 Plt Count 196 MPV 9.2 L Neut % (Auto) 57.8 Lymph % (Auto) 23.0 [place] % (Auto) 13.3 H Eos % (Auto) 4.6 Baso % (Auto) 0.7 Neut # (Auto) 3.1 Lymph # (Auto) 1.2 L [place] # (Auto) 0.7 Eos # (Auto) 0.3 Baso # (Auto) 0.0 Immature Gran % 0.6 Nucleated RBC % 0.0 Immature Gran # 0.03 Nucleated RBCs # 0.00 Immature Plt Fraction 0.0 Sodium 141 Potassium 3.9 Chloride 109 H Carbon Dioxide 27 Anion Gap 8.9 BUN 15 Creatinine 1.20 H GFR Calculation 52 BUN/Creatinine Ratio 12.00 Glucose 176 H POC Glucose 238 H Calculated Osmolality 285.3 Calcium 8.2 L Magnesium 1.6 L Transferrin Lipase 02/13/17 02/13/17 02/13/17 19:28 16:34 04:17 WBC RBC Hgb Hct MCV MCH MCHC RDW Plt Count MPV Neut % (Auto) Lymph % (Auto) [place] % (Auto) Eos % (Auto) Baso % (Auto) Neut # (Auto) Lymph # (Auto) [place] # (Auto) Eos # (Auto) Baso # (Auto) Immature Gran % Nucleated RBC % Immature Gran # Nucleated RBCs # Immature Plt Fraction Sodium Potassium Chloride Carbon Dioxide Anion Gap BUN Creatinine GFR Calculation BUN/Creatinine Ratio Glucose POC Glucose 232 H 177 H Calculated Osmolality Calcium Magnesium Transferrin 246 Lipase 02/13/17 04:13 WBC RBC Hgb Hct MCV MCH MCHC RDW Plt Count MPV Neut % (Auto) Lymph % (Auto) [place] % (Auto) Eos % (Auto) Baso % (Auto) Neut # (Auto) Lymph # (Auto) [place] # (Auto) Eos # (Auto) Baso # (Auto) Immature Gran % Nucleated RBC % Immature Gran # Nucleated RBCs # Immature Plt Fraction Sodium Potassium Chloride Carbon Dioxide Anion Gap BUN Creatinine GFR Calculation BUN/Creatinine Ratio Glucose POC Glucose Calculated Osmolality Calcium Magnesium Transferrin Lipase 476.0 H D DS: Provider Date of admission: 02/09/17 16:12 Primary care physician: . No PCP Attending physician on admission: Henny Apodaca MD Consults: 02/09/17 16:34 Consult to Physician [CONS] Routine Comment: chest pain Consulting Provider: Rachel Sharp Consult to Physician [CONS] Routine Comment: bernardo Consulting Provider: Shameka Sin When should Consulting Provider be notified: In am Consult Notification Comment: OK to consult Dr Sin on 01/2202/11/17 11:18 Consult to Pharmacy [CONS] Routine Reason for Pharmacy Consult: Other Comment: please calculate and infuse iron 02/11/17 11:23 Consult to Physician [CONS] Routine Comment: anemia, plan cath in am Consulting Provider: Daly Solis Person Notified: Dr Zuñiga Date Notified: 02/11/17 Time Notified: 11:35 02/14/17 08:39 Consult to Cardiac Rehabilitation [CONS] Routine Reason for Cardiac Rehabilitation: Risk Factor Modification Discharging clinician: Saide Hardin NP <Lynnette Suazo - Last Filed: 02/14/17 14:53> Hospital Course - Time spent with patient Time with patient DS: Greater than 30 minutes (discharge planning, care coordination, documentation, medicine reconciliation) Diagnosis - Discharge Diagnosis (1) Cardiac chest pain Status: Resolved (2) Acute renal failure Status: Resolved (3) Hyperkalemia Status: Resolved (4) Essential hypertension Status: Chronic (5) Diabetes mellitus Status: Chronic (6) Iron deficiency anemia Status: Chronic (7) Elevated lipase Status: Resolved Discharge Plan - Discharge Data Condition at Discharge: Stable Discharge Diet: diabetic diet, heart healthy Activity: other (advance activity per dr Peck's post cath orders. To return to work per his plan) - Forms/Instructions Additional Discharge Instructions: bmp in a week to check potassium with restarting lisinopril. aldactone stopped for hyperkalemia. Monitor renal function- creatinine is 1.1 today. Exam - Constitutional General appearance: no acute distress, over weight - Eye Eye exam: Present: EOMI. Absent: scleral icterus - Respiratory Respiratory exam: Present: clear to auscultation bilaterally - Cardiovascular Cardiovascular exam: Present: regular rate and rhythm - GI/Abdominal GI/Abdominal exam: Present: normal bowel sounds, soft. Absent: tenderness - Extremities Exam Extremities exam: Absent: edema
[2017-02-14] MEDS: CYANOCOBALAMIN 1000 MCG/1 ML VIAL SUBCUT SCH (11:29)
[2017-02-14 15:19] VITALS: BP 134/70
--- NOTE | 2017-02-14 16:00 | Event Note ---
Patient doing well post heart catheterization. Her right groin is stable. Discussed the findings with her. She has minimal coronary disease. We will see her back in 2 weeks. 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
--- NOTE | 2017-02-14 17:24 | Sleep Medicine Progress Note ---
Assessment and Plan (1) Unspecified sleep apnea Status: Acute Assessment and plan: Patient did have obstructive sleep apnea by home sleep testing and with her comorbidities, she will be set up for outpatient CPAP titration. Current Visit: Yes (2) Essential hypertension Status: Chronic Current Visit: Yes (3) Diabetes mellitus Status: Chronic Current Visit: Yes Sleep Medicine Subjective Interval history: Patient did undergo home sleep testing last night and did have evidence of obstructive sleep apnea with a AHI of over 10 and O2 desaturation into the 70s. Her findings overall are consistent with mild obstructive sleep apnea. However, with the severity of her O2 desaturation and her comorbidities, I have recommended CPAP titration. I reviewed these findings with her to understanding and she will be set up for outpatient polysomnography with CPAP titration. Thank you for this consult. Exam (Progress Note) - Constitutional Vitals: Period Temp Pulse Resp BP Sys/Becker Pulse Ox Last 24 Hr 96.7 F-99.5 F 71-82 16-22 122-171/65-84 92-98 Exam: Patient alert and responsive in no acute distress. Results - Labs CBC & BMP: 02/14/17 05:39 02/14/17 05:39 Lab Results: I have reviewed the past 24 hour labs Specialty Discharge - Follow Up or Referrals Follow up with: Your, PCP [Other] (1 week) Shin Peck MD [Physician] - 02/23/17 8:20 am (One-week follow-up to reevaluate her catheterization site and to discuss her findings and plans.)
== END 2017-02-14 17:36 | disposition home or self-care (01) | DRG 286 ==
LOC: N.ED 13:41 → N.EDINP 16:12 → SUATTDRO 16:12 → N.EDINP 17:21 → N.CC 17:34 → N.TELEN 02-10 13:21
PROVIDERS: ADMIT Internal Medicine; ATTEND Internal Medicine
PROC: CLCCHCL (ICD-10-PCS; 2017-02-14 08:45)